=== PATIENT | female | born 1955 | race Caucasian/White ===

== ENCOUNTER 2016-05-16 19:01 | Emergency (ER) | payer BC, OTHER ==
[2016-05-16] MEDS ORDERED: ASPIRIN 81 MG TABLET, CHEWABLE PO ONE (20:33)
--- NOTE | 2016-05-16 20:36 | ER Document Report ---
ED Medical Screen (RME) - General Chief Complaint: Chest Pain > 30 Stated Complaint: CHEST PAIN, BACK PAIN Time seen by provider: 20:34 Notes: 60-year-old female, chief complaint of chest pain, intermittent for days to weeks but seemed worse today while at work, felt pain in her chest and in her upper back, took two 81 mg aspirin prior to arrival, symptoms of pain/pressure started this afternoon. Past history anemia, no cardiac history. Denies any current symptoms. TRAVEL OUTSIDE OF THE [place] IN LAST 30 DAYS: No - Related Data Allergies/Adverse Reactions: No Known Allergies Allergy (Verified 05/16/16 20:31) Home Medications: Current Home Medications No Home Medications 05/16/16 [History] Past Medical History Renal/ Medical History: Denies: Hx Peritoneal Dialysis Physical Exam - Respiratory Respiratory status: No respiratory distress. No: Respiratory distress, Tachypnea Breath sounds: Normal. No: Decreased air movement, Nonproductive cough, Productive cough, Wheezing - Cardiovascular Rhythm: Regular. No: Tachycardia Heart sounds: Normal auscultation, S1 appreciated, S2 appreciated
[2016-05-16 20:52] LABS: ABSOLUTE BASOPHILS # (AUTO) 0.1 10^3/uL (0.0-0.2); ABSOLUTE EOSINOPHILS # (AUTO) 0.4 10^3/uL (0.0-0.6); ABSOLUTE LYMPHOCYTES (AUTO) 2.8 10^3/uL (0.5-4.7); ABSOLUTE MONOCYTES (AUTO) 0.9 10^3/uL (0.1-1.4); ABSOLUTE NEUT (AUTO) 6.4 10^3/uL (1.7-8.2); BASOPHILS % (AUTO) 1.2 % (0-2); EOSINOPHILS % (AUTO) 3.4 % (0-6); HEMATOCRIT 21.5 % (36.0-47.0); HGB HCT DIFFERENCE -2.3; LYMPHOCYTES % (AUTO) 26.8 % (13-45); MEAN CORPUSCULAR HEMOGLOBIN 16.5 pg (27.0-33.4); MEAN CORPUSCULAR HGB CONC 29.7 g/dL (32.0-36.0); MONOCYTES % (AUTO) 8.3 % (3-13); RED BLOOD COUNT 3.87 10^6/uL (3.72-5.28); RED CELL DISTRIBUTION WIDTH 19.4 % (11.5-14.0); SEGMENTED NEUTROPHILS % (AUTO) 60.3 % (42-78); WHITE BLOOD COUNT 10.6 10^3/uL (4.0-10.5)
[2016-05-16 21:02] LABS: ALANINE AMINOTRANSFERASE 23 U/L (9-52); ALKALINE PHOSPHATASE 86 U/L (38-126); ANION GAP 13 (5-19); ASPARTATE AMINO TRANSFERASE 19 U/L (14-36); BILIRUBIN,TOTAL 0.4 mg/dL (0.2-1.3); BLOOD UREA NITROGEN 22 mg/dL (7-20); CALCIUM 9.2 mg/dL (8.4-10.2); CARBON DIOXIDE 24 mmol/L (22-30); CHLORIDE 107 mmol/L (98-107); CREATINE KINASE 111 U/L (30-135); CREATININE RESULT 0.78 mg/dL (0.52-1.25); GLUCOSE 100 mg/dL (75-110); POTASSIUM 4.1 mmol/L (3.6-5.0); SODIUM 143.6 mmol/L (137-145); TOTAL PROTEIN 6.9 g/dL (6.3-8.2)
[2016-05-16 21:14] LABS: CREATINE KINASE MB 2.51 ng/mL (<4.55)
[2016-05-16 21:30] LABS: HEMOGLOBIN 6.4 g/dL (12.0-15.5)
[2016-05-16 21:37] LABS: ANISOCYTOSIS 2+; HYPOCHROMASIA 2+; MICROCYTOSIS 4+; POIKILOCYTOSIS 1+; POLYCHROMASIA 1+; TOXIC GRANULATION 2+
[2016-05-16 21:38] LABS: OVALOCYTES 1+; TARGET CELLS SLIGHT; TEAR DROP CELLS 1+
[2016-05-16 21:39] LABS: MEAN CORPUSCULAR VOLUME 56 fl (80-97); TROPONIN I < 0.012 ng/mL
[2016-05-17] MEDS ORDERED: NORMAL SALINE 250 ML IV PRN ×2 (01:48)
--- NOTE | 2016-05-17 02:00 | ER Document Report ---
Addendum entered and electronically signed by JERRY GIRALDO NP 05/17/16 11:36 : Course - Re-evaluation Re-evalutation: 05/17/16 11:35 Patient reports she's feeling a lot better. She was instructed on her follow- up visit with Dr. Tejada at 1330 today. She verbalized understanding. H&H increased - Vital Signs Vital signs: Temp Pulse Resp BP Pulse Ox 97.4 F 77 16 148/80 H 99 05/17/16 09:14 05/17/16 09:14 05/17/16 07:14 05/17/16 09:14 05/17/16 09:14 - Laboratory Result Diagrams: 05/17/16 09:50 05/16/16 20:40 Laboratory results interpreted by me: 05/16/16 05/16/16 05/17/16 20:40 20:40 02:00 WBC 10.6 H Hgb 6.4 L Hct 21.5 L MCV 56 L MCH 16.5 L MCHC 29.7 L RDW 19.4 H BUN 22 H Crossmatch See Detail 05/17/16 09:50 WBC Hgb 8.1 L Hct 26.9 L MCV 61 L D MCH 18.4 L MCHC 29.9 L RDW 27.0 H BUN Crossmatch Addendum entered and electronically signed by JERRY GIRALDO NP 05/17/16 08:34 : Course - Re-evaluation Re-evalutation: 05/17/16 08:34 Report received from Primitivo Redman. Dr. Tejada consult did. He agrees patient follow-up in the office today or tomorrow. Office contacted appointment arranged for 1330 today. Patient updated - Vital Signs Vital signs: Temp Pulse Resp BP Pulse Ox 97.8 F 73 16 131/77 H 97 05/17/16 07:14 05/17/16 07:14 05/17/16 07:14 05/17/16 07:14 05/17/16 07:14 - Laboratory Result Diagrams: 05/16/16 20:40 05/16/16 20:40 Laboratory results interpreted by me: 05/16/16 05/16/16 05/17/16 20:40 20:40 02:00 WBC 10.6 H Hgb 6.4 L Hct 21.5 L MCV 56 L MCH 16.5 L MCHC 29.7 L RDW 19.4 H BUN 22 H Crossmatch See Detail Original Note: ED Cardiac - General Chief Complaint: Chest Pain > 30 Stated Complaint: CHEST PAIN, BACK PAIN Time seen by provider: 01:55 Notes: 60-year-old female, chief complaint of chest pain, intermittent for days to weeks but seemed worse today while at work, felt vague pain in her chest and in her upper back, took two 81 mg aspirin prior to arrival, symptoms of pain/ pressure started this afternoon. Past history anemia, no cardiac history. Denies any current symptoms. Patient has had a cholecystectomy. TRAVEL OUTSIDE OF THE [place] IN LAST 30 DAYS: No - Related Data Allergies/Adverse Reactions: No Known Allergies Allergy (Verified 05/16/16 20:31) Home Medications: Current Home Medications No Home Medications 05/16/16 [History] Past Medical History - General Information source: Patient - Social History Smoking Status: Never Smoker Frequency of alcohol use: None Drug Abuse: None Lives with: Alone Family History: Reviewed & Not Pertinent Patient has suicidal ideation: No Patient has homicidal ideation: No Renal/ Medical History: Denies: Hx Peritoneal Dialysis Past Surgical History: Reports: Hx Cholecystectomy Review of Systems - Review of Systems Constitutional: See HPI EENT: No symptoms reported Cardiovascular: See HPI Respiratory: See HPI Gastrointestinal: No symptoms reported Genitourinary: No symptoms reported Female Genitourinary: No symptoms reported Musculoskeletal: No symptoms reported Skin: No symptoms reported Hematologic/Lymphatic: No symptoms reported Neurological/Psychological: No symptoms reported Physical Exam - Vital signs Vitals: Temp Pulse Resp BP Pulse Ox 98.2 F 79 18 139/63 H 97 05/16/16 20:15 05/16/16 20:15 05/16/16 20:15 05/16/16 20:15 05/16/16 20:15 Interpretation: Normal - General General appearance: Appears well, Alert In distress: None - HEENT Head: Normocephalic, Atraumatic Eyes: Normal Conjunctiva: Normal Extraocular movements intact: Yes Eyelashes: Normal Pupils: PERRL Sinus: Normal Nasal: Normal Mouth/Lips: Normal Mucous membranes: Normal Pharynx: Normal Neck: Normal - Respiratory Respiratory status: No respiratory distress Chest status: Nontender Breath sounds: Normal. No: Decreased air movement, Nonproductive cough Chest palpation: Normal - Cardiovascular Rhythm: Regular. No: Tachycardia Heart sounds: Normal auscultation, S1 appreciated, S2 appreciated Murmur: No - Abdominal Inspection: Normal Distension: No distension Bowel sounds: Normal Tenderness: Nontender. No: Tender, Guarding Organomegaly: No organomegaly - Back Back: Normal, Nontender - Extremities General upper extremity: Normal inspection, Nontender, Normal color, Normal ROM , Normal temperature General lower extremity: Normal inspection, Nontender, Normal color, Normal ROM , Normal temperature, Normal weight bearing. No: April's sign - Neurological Neuro grossly intact: Yes Cognition: Normal Orientation: AAOx4 Burgess Coma Scale Eye Opening: Spontaneous Burgess Coma Scale Verbal: Oriented Burgess Coma Scale Motor: Obeys Commands Burgess Coma Scale Total: 15 Speech: Normal Motor strength normal: LUE, RUE, LLE, RLE Sensory: Normal - Psychological Associated symptoms: Normal affect, Normal mood - Skin Skin Temperature: Warm Skin Moisture: Dry Skin Color: Normal Course - Re-evaluation Re-evalutation: When questioned further patient admits that she has vaginal bleeding daily for the past 3 years, has had difficulty with vaginal bleeding much longer than that , she has been transfused once in 2006, she states she has been worked up for anemia before with no findings, she has not had any medical workup any time recently. Hemoglobin is very low at 6.4, patient getting 2 units packed red blood cells transfused, patient remained asymptomatic during her stay except for mild itching which patient states she has had for over a week. Discussed with Dr. Patel per [facility] guidelines. Discussed with patient that there is concern that she has a cancer source that is causing her bleeding, patient states that she has insurance and she does want somebody to see to get this taken care of. Patient will be referred for very close follow up with [facility], patient's states satisfaction and agreement. 05/17/16 07:20 Patient introduced at bedside to Violet DORSEY. - Vital Signs Vital signs: Temp Pulse Resp BP Pulse Ox 97.8 F 73 16 131/77 H 97 05/17/16 07:14 05/17/16 07:14 05/17/16 07:14 05/17/16 07:14 05/17/16 07:14 - Laboratory Result Diagrams: 05/16/16 20:40 05/16/16 20:40 Laboratory results interpreted by me: 05/16/16 05/16/16 05/17/16 20:40 20:40 02:00 WBC 10.6 H Hgb 6.4 L Hct 21.5 L MCV 56 L MCH 16.5 L MCHC 29.7 L RDW 19.4 H BUN 22 H Crossmatch See Detail Discharge - Discharge Clinical Impression: Symptomatic anemia, Anemia requiring transfusions Condition: Stable Disposition: HOME, SELF-CARE Additional Instructions: You have been given blood transfusions to normalize your hemoglobin levels, however please follow-up as soon as possible with the [facility] referral for management of vaginal bleeding. Please do not delay, delayed could mean complication such as cancer development, worsening anemia, or other concerning problems. Return to emergency department for any return or new concerning symptoms. Forms: Return to Work Referrals: [facility] [Provider Group] - Follow up in 1 week
[2016-05-17] MEDS ORDERED: DIPHENHYDRAMINE HCL 50 MG/ML VIAL IV ONE (06:02)
[2016-05-17 10:30] LABS: HEMATOCRIT 26.9 % (36.0-47.0); HEMOGLOBIN 8.1 g/dL (12.0-15.5); HGB HCT DIFFERENCE -2.6; MEAN CORPUSCULAR HEMOGLOBIN 18.4 pg (27.0-33.4); MEAN CORPUSCULAR HGB CONC 29.9 g/dL (32.0-36.0); RED BLOOD COUNT 4.39 10^6/uL (3.72-5.28); WHITE BLOOD COUNT 9.1 10^3/uL (4.0-10.5)
[2016-05-17 10:46] LABS: MEAN CORPUSCULAR VOLUME 61 fl (80-97)
--- NOTE | 2016-05-17 11:19 | EKG REPORT ---
SEVERITY:- ABNORMAL ECG - SINUS RHYTHM LEFT VENTRICULAR HYPERTROPHY : Confirmed by: Darlin Rodríguez 17-May-2016 11:18:50
[2016-05-17 11:49] VITALS: BP 140/75
== END 2016-05-17 11:49 | disposition home or self-care (01) ==
LOC: ER 19:01
DX: D64.9 Anemia, unspecified (principal); R07.9 Chest pain, unspecified; M54.6 Pain in thoracic spine
CPT/HCPCS: 93005; 99285; 96374; 86900; 86901; 36415; 82553; 36430; 86850; 82550; 85025; 85027; 80053; 84484; 86920; 71010; 93010; P9016; J1200

== ENCOUNTER 2016-09-24 19:05 | Emergency (ER) | payer BC ==
[2016-09-24] MEDS ORDERED: NORMAL SALINE 1000 ML 1,000 ML IV PRN (19:34)
--- NOTE | 2016-09-24 19:36 | ER Document Report ---
ED Medical Screen (RME) - General Chief Complaint: General Weakness Stated Complaint: WEAKNESS,VAGINAL BLEEDING Time Seen by Provider: 09/24/16 19:24 Mode of Arrival: Ambulatory Information source: Patient TRAVEL OUTSIDE OF THE [place] IN LAST 30 DAYS: No - HPI Patient complains to provider of: Generalized weakness, dyspnea on exertion, heavy vaginal bleeding Onset/Duration: Persistent Quality of pain: Achy Severity: Mild Pain Level: 1 Associated Symptoms: Dizzy/lightheaded, Other - Rib Pain Similar symptoms previously: Yes Notes: 09/24/16 19:35 Patient is a 60-year-old female with a history of anemia from heavy vaginal bleeding, states she has had vaginal bleeding every day for the past 4-5 years, received a transfusion in 2006 as well as May 2016, she did follow-up with [facility] and her hysterectomy was recommended the patient states she is unable to afford such a procedure, she does report dyspnea on exertion, generalized weakness and malaise - Related Data Allergies/Adverse Reactions: No Known Allergies Allergy (Verified 05/16/16 20:31) Past Medical History Renal/ Medical History: Denies: Hx Peritoneal Dialysis Past Surgical History: Reports: Hx Cholecystectomy Physical Exam - Vital signs Vitals: Temp Pulse Resp BP Pulse Ox 98.5 F 80 20 135/63 H 95 09/24/16 19:20 09/24/16 19:20 09/24/16 19:20 09/24/16 19:20 09/24/16 19:20 Course - Vital Signs Vital signs: Temp Pulse Resp BP Pulse Ox 98.5 F 80 20 135/63 H 95 09/24/16 19:20 09/24/16 19:20 09/24/16 19:20 09/24/16 19:20 09/24/16 19:20
[2016-09-24 20:12] LABS: ABSOLUTE BASOPHILS # (AUTO) 0.1 10^3/uL (0.0-0.2); ABSOLUTE EOSINOPHILS # (AUTO) 0.3 10^3/uL (0.0-0.6); ABSOLUTE LYMPHOCYTES (AUTO) 2.8 10^3/uL (0.5-4.7); ABSOLUTE MONOCYTES (AUTO) 0.8 10^3/uL (0.1-1.4); ABSOLUTE NEUT (AUTO) 4.5 10^3/uL (1.7-8.2); BASOPHILS % (AUTO) 0.8 % (0-2); EOSINOPHILS % (AUTO) 3.2 % (0-6); HEMATOCRIT 18.4 % (36.0-47.0); HGB HCT DIFFERENCE -2.8; LYMPHOCYTES % (AUTO) 33.1 % (13-45); MEAN CORPUSCULAR HEMOGLOBIN 16.3 pg (27.0-33.4); MEAN CORPUSCULAR HGB CONC 28.3 g/dL (32.0-36.0); MONOCYTES % (AUTO) 9.2 % (3-13); RED BLOOD COUNT 3.19 10^6/uL (3.72-5.28); RED CELL DISTRIBUTION WIDTH 18.3 % (11.5-14.0); SEGMENTED NEUTROPHILS % (AUTO) 53.7 % (42-78); WHITE BLOOD COUNT 8.4 10^3/uL (4.0-10.5)
[2016-09-24 20:26] LABS: ANISOCYTOSIS 1+; HYPOCHROMASIA 3+; MICROCYTOSIS 3+; OVALOCYTES SLIGHT; POIKILOCYTOSIS 1+; POLYCHROMASIA SLIGHT; TEAR DROP CELLS SLIGHT
[2016-09-24 20:28] LABS: HEMOGLOBIN 5.2 g/dL (12.0-15.5)
[2016-09-24 20:30] LABS: MEAN CORPUSCULAR VOLUME 58 fl (80-97)
[2016-09-24 20:35] LABS: ALANINE AMINOTRANSFERASE 32 U/L (9-52); ALBUMIN 3.6 g/dL (3.5-5.0); ALKALINE PHOSPHATASE 86 U/L (38-126); ANION GAP 12 (5-19); ASPARTATE AMINO TRANSFERASE 22 U/L (14-36); BILIRUBIN,DIRECT 0.2 mg/dL (0.0-0.4); BILIRUBIN,TOTAL 0.4 mg/dL (0.2-1.3); BLOOD UREA NITROGEN 29 mg/dL (7-20); CARBON DIOXIDE 23 mmol/L (22-30); CHLORIDE 107 mmol/L (98-107); CREATININE RESULT 1.11 mg/dL (0.52-1.25); GLUCOSE 97 mg/dL (75-110); SODIUM 142.3 mmol/L (137-145); TOTAL PROTEIN 6.6 g/dL (6.3-8.2)
[2016-09-24] MEDS ORDERED: NORMAL SALINE 250 ML IV PRN ×2 (20:41)
--- NOTE | 2016-09-24 20:51 | ER Document Report ---
ED General - General Mode of Arrival: Ambulatory Information source: Patient TRAVEL OUTSIDE OF THE [place] IN LAST 30 DAYS: No - HPI Patient complains to provider of: vaginal bleeding Onset: Other - 4-5 years ago Associated symptoms: Other - see notes above <ELIAZAR ANDREWS - Last Filed: 09/25/16 03:17> <YUNNELIA - Last Filed: 09/25/16 03:52> - General Chief Complaint: General Weakness Stated Complaint: WEAKNESS,VAGINAL BLEEDING Time Seen by Provider: 09/24/16 20:40 Notes: 60-year-old female with history of vaginal bleeding for the past 4-5 years presents to the ED complaining of feeling dizzy and lightheaded past few weeks. Patient is also complaining of chest pain and rib pain. Historically, the patient has received a blood transfusion in 2006 and in May 2016. Patient denies taking any iron supplements stating that increases her bleeding. Patient reports that she has been having vaginal bleeding for the past 4-5 years. Patient's mother reports that the patient looks pale compared to normal. Patient states that she has to get $1100 for the hysterectomy and is having trouble finding the money. She has tried contacting financial people here in the hospital states that they could not help because they have covered her past expenses. Patient's project financial analyst is Dr. Helio dove saw her in May 2016 who recommended that the patient receive a hysterectomy. PCP: None (ELIAZAR ANDREWS) - Related Data Allergies/Adverse Reactions: No Known Allergies Allergy (Verified 05/16/16 20:31) Past Medical History - General Information source: Patient - Social History Smoking Status: Never Smoker Chew tobacco use (# tins/day): No Frequency of alcohol use: None Drug Abuse: None Family History: Reviewed & Not Pertinent - Past Medical History Cardiac Medical History: Reports: Other - anemia and blood transfusion (2006 and May 2016) Renal/ Medical History: Reports: Other - vaginal bleeding. Denies: Hx Peritoneal Dialysis Past Surgical History: Reports: Hx Cholecystectomy - Immunizations Hx Diphtheria, Pertussis, Tetanus Vaccination: No <ELIAZAR ANDREWS - Last Filed: 09/25/16 03:17> Review of Systems - Review of Systems Constitutional: No symptoms reported EENT: No symptoms reported Cardiovascular: See HPI, Chest pain, Dizziness, Lightheaded Respiratory: No symptoms reported Gastrointestinal: No symptoms reported Genitourinary: No symptoms reported Female Genitourinary: See HPI, Vaginal bleeding Musculoskeletal: See HPI, Other - rib pain Skin: No symptoms reported Hematologic/Lymphatic: No symptoms reported Neurological/Psychological: No symptoms reported. denies: Lost consciousness -: Yes All other systems reviewed and negative <ELIAZAR ANDREWS - Last Filed: 09/25/16 03:17> Physical Exam - General General appearance: Alert In distress: None - HEENT Head: Normocephalic, Atraumatic Eyes: Pale conjunctiva Extraocular movements intact: Yes Pupils: PERRL - Respiratory Respiratory status: No respiratory distress Breath sounds: Normal - Cardiovascular Rhythm: Regular Heart sounds: Normal auscultation - Abdominal Inspection: Normal Distension: No distension Tenderness: Nontender - Genitourinary External exam: Normal Speculum exam: Normal. No: Vaginal discharge Vaginal bleeding: None - Back Back: Normal - Extremities General upper extremity: Normal inspection, Normal color General lower extremity: Normal inspection, Normal color - Neurological Neuro grossly intact: Yes Cognition: Normal Orientation: AAOx4 Jazzy Coma Scale Eye Opening: Spontaneous Jazzy Coma Scale Verbal: Oriented [place] Coma Scale Motor: Obeys Commands [place] Coma Scale Total: 15 Speech: Normal - Psychological Associated symptoms: Normal affect, Normal mood - Skin Skin Temperature: Warm Skin Moisture: Dry Skin Color: Pale <ELIAZAR ANDREWS - Last Filed: 09/25/16 03:17> Course - Laboratory Result Diagrams: 09/24/16 19:53 09/24/16 19:53 - Consults Dr. Torres Time consulted: 23:21 <ELIAZAR ANDREWS - Last Filed: 09/25/16 03:17> - Laboratory Result Diagrams: 09/24/16 19:53 09/24/16 19:53 <NELIA MACLOLM - Last Filed: 09/25/16 03:52> - Re-evaluation Re-evalutation: 09/25/16 03:06 Patient presents to the emergency department with chief complaint of vaginal bleeding lightheaded and dizziness. She says for the past 3-4 years she has bled pretty much on a daily basis. She states that she did require transfusion one time over a year and a half ago. Last time she was seen by an [employer] physician was May and that was Dr. Hurst. At that time Dr. Hurst wanted to do a hysterectomy but the patient was unable to come up with the money to do the procedure despite the fact that she works and has [employer]. She wanted to start on control pills but the patient declined. She said she pretty much bleeds on a regular basis increased over the last week or so with lightheadedness and dizziness. Mom noticed today that she was pale and because she was lightheaded and dizzy she said she better come be evaluated in emergency department. She denies any abdominal pain flank pain urinary symptoms fevers chills chest pain syncope or near syncope. On examination she is not tachycardic or hypotensive. Abdomen soft no acute guarding rebound or rigidity on my pelvic examination there is no active vaginal bleeding. Hemoglobin came back low went ahead and transfuse her 2 units of blood. At that time I contacted Dr. Torres production supervisor trainee for [employer] who recommended to give her a dose Provera here which I did. She stated after she was transfused 2 units of blood if she felt better she was going to give her information to Dr. Hurst this morning to follow-up in the office in 1-2 days and potentially do ablation in the office. She also asked me to write Provera which I did in prescription form. Long discussion with the patient and family member at the bedside she is comfortable going home she is comfortable with this plan is going to contact Dr. Hurst's office in the morning and told her to return immediately for she is soaking more than 1 pad an hour or any other concerns. (NELIA MALCOLM) - Vital Signs Vital signs: Temp Pulse Resp BP Pulse Ox 98.3 F 70 16 141/71 H 100 09/25/16 01:55 09/25/16 01:55 09/25/16 01:55 09/25/16 03:01 09/25/16 03:01 - Laboratory Laboratory results interpreted by me: 09/24/16 09/24/16 09/24/16 19:53 19:53 19:53 RBC 3.19 L Hgb 5.2 L Hct 18.4 L MCV 58 L MCH 16.3 L MCHC 28.3 L RDW 18.3 H BUN 29 H Est GFR (Non-Af Amer) 50 L Crossmatch See Detail - Consults Dr. Torres Reason for consultation: 09/25/16 23:21 Patient was discussed with Dr. Torres. See re-evaluation note above for details. (ELIAZAR ANDREWS) Critical Care Note - Critical Care Note Total time excluding time spent on procedures (mins): 45 <YUNNELIA - Last Filed: 09/25/16 03:52> Discharge <ELIAZAR ANDREWS - Last Filed: 09/25/16 03:17> <LUZ MALCOLMMY - Last Filed: 09/25/16 03:52> - Discharge Clinical Impression: Dysfunctional uterine bleeding, Blood loss anemia Condition: Stable Disposition: HOME, SELF-CARE Additional Instructions: Dysfunctional Uterine Bleeding You're having an abnormal pattern of bleeding from the uterus. We call this dysfunctional uterine bleeding. It is most often caused by a hormone imbalance. Most often this is temporary and no cause is found. There's no evidence of , tumors, or infection as a cause. Dysfunctional uterine bleeding is especially common at times when the normal menstrual cycle is disturbed -- whether by recent , use of control pills or hormones, or impending menopause. Some medical problems lead to dysfunctional bleeding, such as obesity or being very underweight, stress, or thyroid problems. In many cases, the menstrual cycle will return to normal without any treatment. Where the bleeding is significant, high-dose estrogen will usually stop the bleeding within a day of two. A cycle or two of hormones ( control pills) can help restore the uterus to normal. In some patients where bleeding is severe or resistant to treatment, a D&C is required. A endometrial biopsy (a sample of the inside of the uterus) may be recommended for some older women. This would be done by a gynecology specialist. Treatment for anemia may be required if bleeding is severe. You should rest and avoid intercourse until the bleeding is controlled. Call the doctor or return for re-examination if you feel faint, have increasing pain, or have a major increase in the amount of bleeding. Anemia You have been found to have a significant anemia (a lower than normal amount of red blood cells). Anemia can be due to iron deficiency, vitamin deficiency, abnormal bleeding, or internal diseases. Usually, further tests are necessary to find the exact cause of the anemia. The most common cause of anemia is iron deficiency, often brought on by blood loss. This can be treated with iron supplements. If this appears to be the most likely cause, iron tablets may be prescribed even before all tests are complete. Contact the doctor at once if you note black or tarry-looking stools, bloody vomiting, shortness of breath, chest pain, or faintness. Referrals: YAZMIN HURST MD [ACTIVE STAFF] - (Call the office in the a.m. to be seen in follow-up in 1-2 days return immediately to the emergency department if you are soaking greater than 1 pad an hour or there is any additional concerns) Scribe Attestation: 09/25/16 03:03 I personally performed the services described in the documentation reviewed the documentation recorded by my scribe in my presence and it accurately and completely records my words and actions (NELIA MALCOLM) Scribe Documentation - Scribe Written by Kevan:: Kevan Cam, 09/24/2016 [id number] acting as scribe for :: Yun <ELIAZAR ANDREWS - Last Filed: 09/25/16 03:17>
[2016-09-24] MEDS ORDERED: MEDROXYPROGESTERONE ACET 10 MG TABLET PO ONE (23:26)
[2016-09-25 03:23] VITALS: BP 141/71
[2016-09-25 12:12] LABS: PATH REVIEW PATHOLOGIST REVIEWED
== END 2016-09-25 03:30 | disposition home or self-care (01) ==
LOC: ER 19:05
DX: N93.8 Other specified abnormal uterine and vaginal bleeding (principal); D50.0 Iron deficiency anemia secondary to blood loss (chronic); R07.81 Pleurodynia; R42 Dizziness and giddiness; Z59.9 Problem related to housing and economic circumstances, unspecified
CPT/HCPCS: 99285; 96360; 86900; 86901; 36415; 36430; 86850; 85025; 80053; 86920; P9016; J3490; J7030

== ENCOUNTER 2016-10-19 15:44 | Emergency (ER) | payer BC, OTHER ==
--- NOTE | 2016-10-19 16:39 | ER Document Report ---
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 Patient is scheduled for hysterectomy (Dr. Cadet) on November 15. She presents to the emergency room with concerns for worsening anemia in the setting of increased vaginal bleeding. The only medicine the patient is on is medroxyprogesterone ( 20 mg 3 times a day). She was placed on this medicine by Dr. Cadet for dysfunctional uterine bleeding. TRAVEL OUTSIDE OF THE [place] IN LAST 30 DAYS: No - Related Data Allergies/Adverse Reactions: No Known Allergies Allergy (Verified 10/19/16 15:50) Past Medical History Renal/ Medical History: Denies: Hx Peritoneal Dialysis Past Surgical History: Reports: Hx Cholecystectomy - Immunizations Hx Diphtheria, Pertussis, Tetanus Vaccination: No Physical Exam - Vital signs Vitals: Temp Pulse Resp BP Pulse Ox 98.7 F 102 H 20 133/53 H 97 10/19/16 15:49 10/19/16 15:49 10/19/16 15:49 10/19/16 15:49 10/19/16 15:49 Course - Vital Signs Vital signs: Temp Pulse Resp BP Pulse Ox 98.7 F 102 H 20 133/53 H 97 10/19/16 15:49 10/19/16 15:49 10/19/16 15:49 10/19/16 15:49 10/19/16 15:49
[2016-10-19 17:27] LABS: ABSOLUTE BASOPHILS # (AUTO) 0.1 10^3/uL (0.0-0.2); ABSOLUTE EOSINOPHILS # (AUTO) 0.2 10^3/uL (0.0-0.6); ABSOLUTE LYMPHOCYTES (AUTO) 2.4 10^3/uL (0.5-4.7); ABSOLUTE MONOCYTES (AUTO) 0.9 10^3/uL (0.1-1.4); ABSOLUTE NEUT (AUTO) 9.4 10^3/uL (1.7-8.2); EOSINOPHILS % (AUTO) 1.8 % (0-6); HEMATOCRIT 20.7 % (36.0-47.0); HGB HCT DIFFERENCE -2.4; LYMPHOCYTES % (AUTO) 18.2 % (13-45); MEAN CORPUSCULAR HEMOGLOBIN 18.5 pg (27.0-33.4); MEAN CORPUSCULAR HGB CONC 29.7 g/dL (32.0-36.0); MONOCYTES % (AUTO) 7.1 % (3-13); RED BLOOD COUNT 3.31 10^6/uL (3.72-5.28); RED CELL DISTRIBUTION WIDTH 26.5 % (11.5-14.0); SEGMENTED NEUTROPHILS % (AUTO) 71.9 % (42-78); WHITE BLOOD COUNT 13.1 10^3/uL (4.0-10.5)
[2016-10-19 17:48] LABS: MEAN CORPUSCULAR VOLUME 62 fl (80-97)
[2016-10-19 17:49] LABS: ALANINE AMINOTRANSFERASE 31 U/L (9-52); ALBUMIN 3.8 g/dL (3.5-5.0); ALKALINE PHOSPHATASE 74 U/L (38-126); ANION GAP 11 (5-19); ASPARTATE AMINO TRANSFERASE 17 U/L (14-36); BILIRUBIN,DIRECT 0.3 mg/dL (0.0-0.4); BILIRUBIN,TOTAL 0.5 mg/dL (0.2-1.3); BLOOD UREA NITROGEN 23 mg/dL (7-20); CALCIUM 9.2 mg/dL (8.4-10.2); CARBON DIOXIDE 23 mmol/L (22-30); CHLORIDE 107 mmol/L (98-107); GLUCOSE 102 mg/dL (75-110); POTASSIUM 5.2 mmol/L (3.6-5.0); SODIUM 140.8 mmol/L (137-145); TOTAL PROTEIN 6.9 g/dL (6.3-8.2)
[2016-10-19 17:54] LABS: ANISOCYTOSIS 3+; HYPOCHROMASIA 2+; MICROCYTOSIS 3+; POIKILOCYTOSIS 1+; POLYCHROMASIA SLIGHT
[2016-10-19 17:55] LABS: OVALOCYTES 1+; SCHISTOCYTES SLIGHT; TEAR DROP CELLS SLIGHT
[2016-10-19 17:57] LABS: HEMOGLOBIN 6.1 g/dL (12.0-15.5)
[2016-10-19] MEDS ORDERED: NORMAL SALINE 250 ML IV PRN ×2 (18:04)
--- NOTE | 2016-10-19 18:35 | ER Document Report ---
ED General - General Mode of Arrival: Ambulatory Information source: Patient TRAVEL OUTSIDE OF THE [place] IN LAST 30 DAYS: No - HPI Onset: Other - Refer to HPI notes <NEEL DE LEON - Last Filed: 10/19/16 20:33> <JIEISADORA PINON - Last Filed: 10/19/16 22:40> - General Chief Complaint: Vaginal Bleeding Stated Complaint: SHORTNESS OF BREATH Time Seen by Provider: 10/19/16 16:32 Notes: Patient is a 61 year old female presenting to the emergency department for vaginal bleeding. Today the patient's third transfusion since May. Patient is scheduled to have a hysterectomy on November 15, 2016. Patient states that her last pelvic exam was in May with Dr. Hurst at [facility]. Patient states that she has bled through 50 pads in just a few days. Patient was placed on medroxyprogesterone 20 mg 3 times a day by Dr. Hurst for dysfunctional uterine bleeding. Patient has no known drug allergies. (NEEL DE LEON) - Related Data Allergies/Adverse Reactions: No Known Allergies Allergy (Verified 10/19/16 15:50) Past Medical History - General Information source: Patient - Social History Smoking Status: Never Smoker Cigarette use (# per day): No Chew tobacco use (# tins/day): No Frequency of alcohol use: None Drug Abuse: None Family History: None Patient has suicidal ideation: No Patient has homicidal ideation: No Past Surgical History: Reports: Hx Section - x 1, Hx Cholecystectomy - Immunizations Hx Diphtheria, Pertussis, Tetanus Vaccination: No <NEEL DE LEON - Last Filed: 10/19/16 20:33> Review of Systems - Review of Systems Constitutional: No symptoms reported EENT: No symptoms reported Cardiovascular: No symptoms reported Respiratory: No symptoms reported Gastrointestinal: No symptoms reported Genitourinary: No symptoms reported Female Genitourinary: See HPI, Vaginal bleeding Musculoskeletal: No symptoms reported Skin: No symptoms reported Hematologic/Lymphatic: No symptoms reported Neurological/Psychological: See HPI, Weakness -: Yes All other systems reviewed and negative <NEEL DE LEON - Last Filed: 10/19/16 20:33> Physical Exam - Vital signs Interpretation: Normal <NEEL DE LEON - Last Filed: 10/19/16 20:33> - Genitourinary External exam: Normal Vaginal bleeding: Mild [place]iman[place] exam: Normal <ISADORA CERON - Last Filed: 10/19/16 22:40> - Vital signs Vitals: Temp Pulse Resp BP Pulse Ox 98.7 F 102 H 20 133/53 H 97 10/19/16 15:49 10/19/16 15:49 10/19/16 15:49 10/19/16 15:49 10/19/16 15:49 - Notes Notes: GENERAL: Alert, interacts well. Mild distress. HEAD: Normocephalic, atraumatic. EYES: Appear normal. Pupils equal, round, and reactive to light. ENT: Moist mucus membranes, tongue midline. NECK: Full range of motion. Supple. Trachea midline. LUNGS: Clear to auscultation bilaterally, no wheezes, rales, or rhonchi. No respiratory distress. HEART: Regular rate and rhythm. No murmurs, gallops, or rubs. ABDOMEN: Soft, non-tender. Non-distended. Normal bowel sounds. PELVIC: Blood present. EXTREMITIES: Moves all 4 extremities spontaneously. Normal strength. No edema. NEUROLOGICAL: Alert and oriented x3. Normal speech. No focal neurological deficits. GSC 15. PSYCH: Normal affect, normal mood. SKIN: Pale, warm, dry, normal turgor. (NEEL DE LEON) Course - Laboratory Result Diagrams: 10/19/16 17:00 10/19/16 17:00 - Consults Dr. Hurst Time consulted: 19:00 Consulted provider: follow-up in office <NEEL DE LEON - Last Filed: 10/19/16 20:33> - Laboratory Result Diagrams: 10/19/16 17:00 10/19/16 17:00 <ISADORA CERON - Last Filed: 10/19/16 22:40> - Re-evaluation Re-evalutation: 10/19/16 21:56 Patient is a 61-year-old female who presents with vaginal bleeding. Patient has had multiple episodes of this. Patient is anemic to 6.1. Patient will be transfused. Patient only has mild vaginal bleeding at this time. Helio from [facility]. The patient will be given 2 units of PRBCs here in the emergency department. She is already on Provera 20 mg 3 times a day. She is to call Dr. Hurst on Saturday to get in for an earlier preoperative appointment. Vitals are stable. Patient agrees with this plan. 10/19/16 22:39 Transfusion finished about an hour ago. Patient feels well. Vitals are stable. Minimal vaginal bleeding at this time. Follow up with [facility] Saturday. Understands and agrees with plan. Stable for discharge. (ISADORA CERON ) - Vital Signs Vital signs: Temp Pulse Resp BP Pulse Ox 99.5 F 80 23 H 130/86 H 99 10/19/16 21:53 10/19/16 20:27 10/19/16 21:52 10/19/16 21:53 10/19/16 21:52 - Laboratory Laboratory results interpreted by me: 10/19/16 10/19/16 10/19/16 17:00 17:00 17:00 WBC 13.1 H RBC 3.31 L Hgb 6.1 L Hct 20.7 L MCV 62 L D MCH 18.5 L MCHC 29.7 L RDW 26.5 H Plt Count 508 H Absolute Neutrophils 9.4 H Potassium 5.2 H BUN 23 H Est GFR (Non-Af Amer) 51 L Crossmatch See Detail - Consults Dr. Hurst Reason for consultation: 10/19/16 19:[address] Hurst to discuss patient. she recommends the patient was transfused and sent home on Provera and will follow-up as an outpatient. (NEEL DE LEON) Discharge <NEEL DE LEON - Last Filed: 10/19/16 20:33> <ISADORA CERON - Last Filed: 10/19/16 22:40> - Discharge Clinical Impression: Vaginal bleeding, Symptomatic anemia Condition: Stable Disposition: HOME, SELF-CARE Instructions: Menorrhagia ([facility]), Anemia ([facility]) Referrals: YAZMIN HURST MD [Primary Care Provider] - 10/22/16 Scribe Attestation: 10/19/16 22:40 I personally performed the services described in the documentation, reviewed and edited the documentation which was dictated to the scribe in my presence, and it accurately records my words and actions. (ISADORA CERON) Scribe Documentation - Scribe Written by Scribe:: Kevan Josue, 10/19/2016 2030 acting as scribe for :: Jie <NEEL DE LEON - Last Filed: 10/19/16 20:33>
[2016-10-19 21:55] VITALS: BP 130/86
== END 2016-10-19 23:07 | disposition home or self-care (01) ==
LOC: ER 15:44
DX: D64.9 Anemia, unspecified (principal); N93.8 Other specified abnormal uterine and vaginal bleeding; R53.1 Weakness; Z79.3 Long term (current) use of hormonal contraceptives
CPT/HCPCS: 99284; 86900; 86901; 36415; 36430; 86850; 85025; 80053; 86920; P9016

== ENCOUNTER 2016-11-15 05:22 | Day surgery (SDC) | payer BC, OTHER ==
[2016-11-07 11:52] LABS: HEMATOCRIT 27.8 % (36.0-47.0); HEMOGLOBIN 8.5 g/dL (12.0-15.5); HGB HCT DIFFERENCE -2.3; MEAN CORPUSCULAR HEMOGLOBIN 20.5 pg (27.0-33.4); MEAN CORPUSCULAR HGB CONC 30.6 g/dL (32.0-36.0); RED BLOOD COUNT 4.16 10^6/uL (3.72-5.28); RED CELL DISTRIBUTION WIDTH 28.1 % (11.5-14.0); WHITE BLOOD COUNT 9.3 10^3/uL (4.0-10.5)
[2016-11-07 12:00] LABS: APPEARANCE,URINE SLIGHTLY-CLOUDY; BILIRUBIN,URINE NEGATIVE (NEGATIVE); GLUCOSE, URINE NEGATIVE (NEGATIVE); KETONES,URINE NEGATIVE (NEGATIVE); LEUKOCYTE ESTERASE,URINE LARGE (NEGATIVE); NITRITE,URINE NEGATIVE (NEGATIVE); PROTEIN,URINE NEGATIVE (NEGATIVE); URINE SPECIFIC GRAVITY 1.015; UROBILINOGEN,URINE NEGATIVE mg/dL (<2.0)
[2016-11-07 12:20] LABS: ALANINE AMINOTRANSFERASE 34 U/L (9-52); ALBUMIN 4.1 g/dL (3.5-5.0); ALKALINE PHOSPHATASE 83 U/L (38-126); ANION GAP 11 (5-19); ASPARTATE AMINO TRANSFERASE 20 U/L (14-36); BILIRUBIN,DIRECT 0.3 mg/dL (0.0-0.4); BILIRUBIN,TOTAL 0.5 mg/dL (0.2-1.3); BLOOD UREA NITROGEN 21 mg/dL (7-20); CARBON DIOXIDE 22 mmol/L (22-30); CHLORIDE 108 mmol/L (98-107); CREATININE RESULT 0.78 mg/dL (0.52-1.25); GLUCOSE 88 mg/dL (75-110); POTASSIUM 5.2 mmol/L (3.6-5.0); SODIUM 140.9 mmol/L (137-145); TOTAL PROTEIN 7.2 g/dL (6.3-8.2)
--- NOTE | 2016-11-07 12:40 | RADIOLOGY REPORT (SQ) ---
EXAM DESCRIPTION: CHEST PA/LATERAL COMPLETED DATE/TIME: 11/07/2016 10:52 am REASON FOR STUDY: PRE OP COMPARISON: 05/22/2016 EXAM PARAMETERS: NUMBER OF VIEWS: two views TECHNIQUE: Digital Frontal and Lateral radiographic views of the chest acquired. RADIATION DOSE: NA LIMITATIONS: none FINDINGS: LUNGS AND PLEURA: No opacities, masses or pneumothorax. No pleural effusion. MEDIASTINUM AND HILAR STRUCTURES: No masses or contour abnormalities. HEART AND VASCULAR STRUCTURES: Heart normal size. No evidence for failure. BONES: No acute findings. HARDWARE: None in the chest. OTHER: No other significant finding. IMPRESSION: NO SIGNIFICANT RADIOGRAPHIC FINDING IN THE CHEST. TECHNICAL DOCUMENTATION: JOB ID: [id number] [employer]- All Rights Reserved
[2016-11-07 12:58] LABS: MEAN CORPUSCULAR VOLUME 67 fl (80-97)
--- NOTE | 2016-11-07 16:08 | EKG REPORT ---
SEVERITY:- ABNORMAL ECG - SINUS RHYTHM LEFT VENTRICULAR HYPERTROPHY : Confirmed by: Cora Tobias MD 07-Nov-2016 16:08:12
[~2016-11-15 05:22] MED LIST: CEFAZOLIN 1 GM/D5W RTU 1 GM/50 ML RTUPB IV PRN; LACTATED RINGERS 1000 ML IV PRN
[2016-11-15] MEDS ORDERED: FENTANYL CITRATE INJ/PF 250 MCG/5 ML AMPULE ONE (06:51)
[2016-11-15] MEDS ORDERED: EPHEDRINE SULFATE INJ 50 MG/1 ML AMPULE ONE (06:51)
[2016-11-15] MEDS ORDERED: MIDAZOLAM 2 MG/2 ML INJ ONE (06:51)
[2016-11-15] MEDS ORDERED: PROPOFOL INJ 200 MG/20 ML VIAL IV ONE (06:52)
[2016-11-15] MEDS ORDERED: ACETAMINOPHEN 100 ML IV ONE ×2 (06:52→17:30)
[2016-11-15] MEDS ORDERED: MORPHINE SULFATE 10 MG/ML INJ ONE (06:52)
[2016-11-15] MEDS ORDERED: BUPIVACAINE HCL 0.25 % INJ/PF (2.5 MG/1 ML) 30 ML VIAL ONE (07:26)
[2016-11-15] MEDS ORDERED: ROCURONIUM BROMIDE INJ 50 MG/5 ML VIAL IV ONE (07:45)
[2016-11-15] MEDS ORDERED: LIDOCAINE 2% INJ-PF (20 MG/ML) 10 ML AMPUL ONE (07:45)
[2016-11-15] MEDS ORDERED: DEXAMETHASONE SOD PHOSPHATE INJ 4 MG/1 ML VIAL ONE (07:45)
[2016-11-15] MEDS ORDERED: NEOSTIGMINE METHYLSULFATE 10 MG/10 ML VIAL ONE (07:45)
[2016-11-15] MEDS ORDERED: GLYCOPYRROLATE INJ 0.4 MG/2 ML VIAL ONE (07:45)
[2016-11-15] MEDS ORDERED: METOCLOPRAMIDE HCL INJ/PF 10 MG/2 ML SDV ONE (07:45)
[2016-11-15] MEDS ORDERED: SUCCINYLCHOLINE CHLORIDE INJ 200 MG/10 ML VIAL ONE (07:45)
[2016-11-15] MEDS ORDERED: FENTANYL CITRATE INJ/PF 100 MCG/2 ML AMPUL IV PRN ×3 (09:24)
[2016-11-15] MEDS ORDERED: MORPHINE SULFATE 10 MG/ML INJ IV PRN ×2 (09:24→14:58)
[2016-11-15] MEDS ORDERED: DIPHENHYDRAMINE HCL 50 MG/ML VIAL IV PRN (09:24)
[2016-11-15] MEDS ORDERED: PROMETHAZINE HCL INJ 25 MG/1 ML VIAL IV PRN (09:24)
[2016-11-15] MEDS ORDERED: MEPERIDINE HCL/PF INJ 25 MG/1 ML DISP.SYRIN IV PRN (09:24)
--- NOTE | 2016-11-15 14:17 | OPERATIVE REPORT E ---
Operative Report NAME: SANDEEP HURST : 1955 AGE: 61Y DATE OF SURGERY: 11/15/2016 ROOM: PREOPERATIVE DIAGNOSES: 1. Abnormal uterine bleeding. 2. Anemia. 3. Pelvic pain. 4. Symptomatic fibroids. POSTOPERATIVE DIAGNOSES: 1. Abnormal uterine bleeding. 2. Anemia. 3. Pelvic pain. 4. Symptomatic fibroids. SURGEON: YAZMIN HURST M.D. ANESTHESIA: Dr. Maxwell with general. FINDINGS: Multiple fibroid uterus measuring approximately 14-week size. COMPLICATIONS: None. ESTIMATED BLOOD LOSS: 300 mL. SPECIMENS REMOVED: Uterus, fallopian tubes, and bilateral ovaries. PROCEDURE: Robotic-assisted total laparoscopic hysterectomy with bilateral salpingo-oophorectomy. PROCEDURE IN DETAIL: Patient was taken to the operating room and prepared and draped in a normal sterile fashion in the dorsal lithotomy position. Under sterile conditions, a Rivers catheter was placed to gravity. A sterile speculum was then placed into the vagina and the cervix was prepped with Betadine. The cervix was grasped with a single-toothed tenaculum and dilated to accommodate a medium Vcare, which was placed without difficulty. Gloves were changed and attention was then turned to the upper portion of the case where an umbilical skin incision was made with a scalpel and carried through to the underlying layer of fascia with the Deleon's. The fascia was tented with Yvette's and the Deleon's were used to transect the fascia then to what was thought to be the peritoneal cavity, some difficulty with placing. After the extension of the fascial incision to accommodate the Gelpoint, we realized that the Gelpoint was not actually in the peritoneal cavity and the peritoneum had yet to be transected so the Gelpoint was removed and the peritoneum was then grasped with hemostats and entered carefully with Metzenbaum's. The peritoneum was then divided and the Gelpoint was placed without difficulty. The abdomen was then insufflated through the Gelpoint and the trocars were placed under direct visualization. The abdomen was inspected once more and the patient was placed in steep Trendelenburg where the above findings noted. The robot was docked and I sat at the console, where using the vessel sealer and the monopolar scissors, I began on the left adnexa and transected the infundibulopelvic ligament with the Endo sealer. This was carried through to the round ligament again with the vessel sealer following the large uterus down to the internal cervical os. This was repeated on the right in the same fashion. The vessel sealer and monopolar scissors were then used to carefully make the bladder flap and this was dissected down until the Vcare cup could be palpated through the mucosa. Continued with careful dissection and skeletonization of the uterine artery using the vessel sealer. Had some difficulty with the colporrhaphy as this was begun on the anterior side and the specimen did fall off of the Vcare, so there was some difficulty with completing the colporrhaphy on the posterior side of the uterus, but this was done with careful dissection using the monopolar scissors. We then had further difficulty with removal of the specimen as it was rather large and the patient did have some atrophy of the vagina. Therefore, the uterus was then carefully morcellated from below using blunt morselization as well as sharp morselization with a 10-blade. Once this was accomplished, the vaginal cuff was then closed from below using the V-Loc suture rather than with the robot as we had had so much difficulty with removing the uterus through the vagina due to its size. We just completed the case vaginally. I then reintroduced the laparoscope once more and inspected the peritoneal cavity for hemostasis and found it to be so. The trocars were then all removed and the fascia was closed at the umbilicus using 0 Vicryl. The skin incisions were all closed with 4-0 Vicryl. Patient tolerated procedure well. Sponge, lap, and needle counts were correct x2, and the patient was taken to recovery in stable condition. DICTATING PHYSICIAN: YAZMIN HURST M.D. [id number] PHY#: [id number] ID: [id number] JOB#: [id number] ACCT: [id number] cc:YAZMIN HURST M.D. >
[2016-11-15] MEDS ORDERED: OXYCODONE-ACETAMINOPHEN 5-325 MG TABLET PO PRN (15:05)
[2016-11-15] MEDS: RINGERS SOLUTION,LACTATED 1,000 ML IV PRN (15:14)
[2016-11-15] MEDS ORDERED: ENOXAPARIN SODIUM INJ 40 MG/0.4 ML DISP.SYRIN SUBCUT ONE (15:30)
[2016-11-15] MEDS ORDERED: ONDANSETRON HCL INJ/PF 4 MG/2 ML SDV IV PRN (17:15)
[2016-11-15 17:53] LABS: HEMATOCRIT 23.2 % (36.0-47.0); HGB HCT DIFFERENCE -2.5; MEAN CORPUSCULAR HEMOGLOBIN 19.5 pg (27.0-33.4); MEAN CORPUSCULAR HGB CONC 29.8 g/dL (32.0-36.0); MEAN CORPUSCULAR VOLUME 65 fl (80-97); RED BLOOD COUNT 3.56 10^6/uL (3.72-5.28); RED CELL DISTRIBUTION WIDTH 25.8 % (11.5-14.0); WHITE BLOOD COUNT 18.5 10^3/uL (4.0-10.5)
[2016-11-15 17:59] LABS: HEMOGLOBIN 6.9 g/dL (12.0-15.5)
[2016-11-15] MEDS: KETOROLAC TROMETHAMINE INJ/PF 30 MG/1 ML SDV IV SCH (22:59)
[2016-11-16] MEDS: RINGERS SOLUTION,LACTATED 1,000 ML IV PRN (02:36)
[2016-11-16 05:53] LABS: HEMATOCRIT 23.1 % (36.0-47.0); HGB HCT DIFFERENCE -1.5; MEAN CORPUSCULAR HEMOGLOBIN 21.1 pg (27.0-33.4); MEAN CORPUSCULAR HGB CONC 31.2 g/dL (32.0-36.0); MEAN CORPUSCULAR VOLUME 68 fl (80-97); RED BLOOD COUNT 3.41 10^6/uL (3.72-5.28); RED CELL DISTRIBUTION WIDTH 28.1 % (11.5-14.0); WHITE BLOOD COUNT 14.9 10^3/uL (4.0-10.5)
[2016-11-16 06:15] LABS: HEMOGLOBIN 7.2 g/dL (12.0-15.5)
[2016-11-16] MEDS: KETOROLAC TROMETHAMINE INJ/PF 30 MG/1 ML SDV IV SCH (06:56)
[2016-11-16] MEDS ORDERED: ENOXAPARIN SODIUM INJ 40 MG/0.4 ML DISP.SYRIN SUBCUT SCH (10:00)
--- NOTE | 2016-11-16 12:01 | PDOC DISCHARGE SUMMARY ---
General - Admit/Disc Date/PCP Admission Date/Primary Care Provider: YAZMIN HURST MD Discharge Date: 11/16/16 - Discharge Diagnosis (1) Abnormal uterine bleeding Is this a current diagnosis for this admission?: Yes (2) Anemia Is this a current diagnosis for this admission?: Yes (3) Fibroid (bleeding) (uterine) Is this a current diagnosis for this admission?: Yes (4) Pelvic adhesions Is this a current diagnosis for this admission?: Yes - Additional Information Home Medications: No Home Medications 05/16/16 History of Present Illness History of Present Illness: SANDEEP HURST is a 61 year old female Hospital Course Hospital Course: underwent RATLH w/ BSO and TUCKER with additional uterine morcellation vaginally for removal. No complications post op. +flatus, no nausea, no vomiting. tolerating regular diet. minimal need for pain medication Physical Exam - Physical Exam Vital Signs: Temp Pulse Resp BP Pulse Ox 98.5 F 92 20 124/77 98 11/16/16 00:20 11/16/16 00:20 11/16/16 00:20 11/16/16 00:20 11/16/16 00:20 Intake & Output 11/15/16 11/16/16 11/17/16 06:59 06:59 06:59 Intake Total 0 2400 Output Total 1925 Balance 0 475 Weight 108.86 kg General appearance: PRESENT: no acute distress Head exam: PRESENT: atraumatic Eye exam: PRESENT: conjunctiva pale - incisions clean/dry/intact Result Laboratory Results: 11/16/16 05:06 11/15/16 06:15 11/15/16 11/15/16 11/16/16 06:15 17:35 05:06 WBC 18.5 H 14.9 H RBC 3.56 L 3.41 L Hgb 6.9 L 7.2 L Hct 23.2 L 23.1 L MCV 65 L 68 L MCH 19.5 L 21.1 L MCHC 29.8 L 31.2 L RDW 25.8 H 28.1 H Plt Count 456 H 339 Blood Type B POSITIVE Antibody Screen NEGATIVE Impressions: Chest X-Ray 11/07/16 10:38 IMPRESSION: NO SIGNIFICANT RADIOGRAPHIC FINDING IN THE CHEST. Plan Discharge Plan: discharge home. keep post op appt with me next week. Time Spent: Less than 30 Minutes
[2016-11-16 12:32] VITALS: BP 121/52
[2016-11-16] MEDS ORDERED: IBUPROFEN 800 MG TABLET PO PRN (22:00)
== END 2016-11-16 15:31 | disposition home or self-care (01) ==
LOC: OROUT 05:22 → 2N 14:30 → OROUT 11-16 15:31
PROVIDERS: ATTEND Obstetrics & Gynecology
PROC: 0UTC4ZZ Resection of Cervix, Percutaneous Endoscopic Approach (ICD-10-PCS; 2016-11-15)
PROC: 0UT24ZZ Resection of Bilateral Ovaries, Percutaneous Endoscopic Approach (ICD-10-PCS; 2016-11-15)
PROC: 0UT74ZZ Resection of Bilateral Fallopian Tubes, Percutaneous Endoscopic Approach (ICD-10-PCS; 2016-11-15)
PROC: 8E0W4CZ Robotic Assisted Procedure of Trunk Region, Percutaneous Endoscopic Approach (ICD-10-PCS; 2016-11-15)
PROC: 0UT94ZZ Resection of Uterus, Percutaneous Endoscopic Approach (ICD-10-PCS; principal; 2016-11-15 07:30)
DX: C55 Malignant neoplasm of uterus, part unspecified (principal); D25.1 Intramural leiomyoma of uterus; N93.8 Other specified abnormal uterine and vaginal bleeding; N80.0 Endometriosis of uterus; D64.9 Anemia, unspecified; N73.6 Female pelvic peritoneal adhesions (postinfective); R10.2 Pelvic and perineal pain; N83.8 Other noninflammatory disorders of ovary, fallopian tube and broad ligament; N39.0 Urinary tract infection, site not specified
CPT/HCPCS: 58573; S2900; 36415; 36430; 71020; 80053; 81001; 840; 84132; 85027; 86850; 86900; 86901; 86920; 87086; 88307; 93005; 93010; J0131; J0330; J0690; J1100; J1650; J1885; J2250; J2270; J2405; J2704; J2765; J3010; J3490; J7120; P9016

== ENCOUNTER 2016-12-06 09:43 | Day surgery (SDC) | payer BC ==
[2016-12-06] MEDS ORDERED: PROPOFOL INJ 200 MG/20 ML VIAL IV ONE ×2 (12:00→12:56)
[2016-12-06] MEDS ORDERED: MORPHINE SULFATE 10 MG/ML INJ IV PRN (12:44)
[2016-12-06] MEDS ORDERED: PROMETHAZINE HCL INJ 25 MG/1 ML VIAL IV PRN ×2 (12:44)
[2016-12-06] MEDS ORDERED: FENTANYL CITRATE INJ/PF 100 MCG/2 ML AMPUL IV PRN ×3 (12:44)
[2016-12-06] MEDS ORDERED: DIPHENHYDRAMINE HCL 50 MG/ML VIAL IV PRN (12:44)
[2016-12-06] MEDS ORDERED: MEPERIDINE HCL/PF INJ 25 MG/1 ML DISP.SYRIN IV PRN (12:44)
[2016-12-06] MEDS ORDERED: OXYCODONE-ACETAMINOPHEN 5-325 MG TABLET PO PRN ×2 (12:44)
[2016-12-06] MEDS ORDERED: DEXTROSE 5%-1/2 NORMAL SALINE 1,000 ML IV PRN (13:40)
[2016-12-06] MEDS ORDERED: PROMETHAZINE HCL INJ 25 MG/1 ML VIAL INJ PRN (14:00)
[2016-12-06] MEDS ORDERED: SIMETHICONE 80 MG TAB.CHEW PO PRN (14:00)
[2016-12-06] MEDS ORDERED: ACETAMINOPHEN 325 MG TABLET PO PRN (14:00)
--- NOTE | 2016-12-06 14:21 | Operative Report ---
Operative Report DATE OF SURGERY: 12/06/16 Operative Report: The risks, benefits and alternatives of the procedure including risks of bleeding, perforation requiring surgery are explained to the patient detail and informed consent was obtained. Patient was taken back to the operating room and placed in the left, lateral decubital position. Timeout was called. Propofol medications administered. A rectal examination was done which did not reveal any masses, tears or fissures. An Olympus videoscope was inserted into the patient's rectum. The scope was then carefully advanced all the way to the cecum. Patient has a very tortuous sigmoid along with very significant diverticulosis. After having passed through the area the scope was easier to be advanced to the cecum. The cecum was identified by the usual anatomical landmarks including the ileocecal valve as well as the appendiceal office. Photodocumentation is obtained. Prep is good. Scope was then sequentially pulled back via the rest segments of the colon including the ascending colon, hepatic flexure, transverse colon, splenic flexure, descending colon and finding to the rectosigmoid portions of the colon. Retroflexion maneuver is performed. PREOPERATIVE DIAGNOSIS: Colorectal cancer screening POSTOPERATIVE DIAGNOSIS: There is severe sigmoid diverticulosis. Right side inflammation status post biopsy rule out lymphocytic, microscopic, collagenous colitis. OPERATION: Colonoscopy with biopsy SURGEON: MIAH DALE ANESTHESIA: LMAC TISSUE REMOVED OR ALTERED: Mucosal specimen obtained on the right side of the colon. COMPLICATIONS: None. ESTIMATED BLOOD LOSS: None. INTRAOPERATIVE FINDINGS: As described above. PROCEDURE: Patient tolerated procedure well. No immediate postprocedure complications are noted. Patient discharged in good condition. Discharge date 12/06/2016. Discharge diet: Regular. Discharge activity: Regular. 2-3 week follow-up to discuss findings. Patient is instructed to call the office or proceed to the emergency room should there be any further problems or questions. We will wait on pathology. 5-10 year surveillance colonoscopy.
[2016-12-06 14:44] VITALS: BP 140/90
== END 2016-12-06 14:57 | disposition home or self-care (01) ==
LOC: OROUT 09:43
PROVIDERS: ATTEND Internal Medicine Gastroenterology
PROC: 0DBF8ZX Excision of Right Large Intestine, Via Natural or Artificial Opening Endoscopic, Diagnostic (ICD-10-PCS; principal; 2016-12-06 12:30)
DX: Z12.11 Encounter for screening for malignant neoplasm of colon (principal); K52.9 Noninfective gastroenteritis and colitis, unspecified; K57.30 Diverticulosis of large intestine without perforation or abscess without bleeding; D64.9 Anemia, unspecified; Z85.42 Personal history of malignant neoplasm of other parts of uterus
CPT/HCPCS: 45380; 88305 ×2; J2704; 810

== ENCOUNTER 2017-01-14 13:11 | Emergency (ER) | payer BC ==
[2017-01-14] MEDS ORDERED: HYDROCODONE/ACETAMINOPHEN 5-325 MG TABLET PO ONE (14:24)
--- NOTE | 2017-01-14 14:25 | ER Document Report ---
HPI - HPI Patient complains to provider of: Right knee joint pain Onset: Other - 3 months Onset/Duration: Persistent Quality of pain: Achy Pain Level: 3 Context: Patient presents complaining of right knee joint pain for the past 3 months. Patient denies any specific injury. Patient states she was walking and felt a pop to her right knee. Patient complains of increased pain over the past few days. Associated Symptoms: Other - Right knee joint pain. denies: Fever Exacerbated by: Standing, Movement, Walking Relieved by: Denies Similar symptoms previously: No Recently seen / treated by doctor: No - ROS ROS below otherwise negative: Yes Systems Reviewed and Negative: Yes All other systems reviewed and negative - CONSTITUTIONAL Constitutional: DENIES: Fever - MUSCULOSKELETAL Musculoskeletal: REPORTS: Extremity pain. DENIES: Swelling - DERM Skin Color: Normal Skin Problems: None Past Medical History - General Information source: Patient - Social History Smoking Status: Never Smoker Frequency of alcohol use: None Drug Abuse: None Occupation: None Family History: None - Past Medical History Cardiac Medical History: Reports: Other - Anemia Denies: Hx Coronary Artery Disease, Hx Heart Attack, Hx Hypertension Pulmonary Medical History: Denies: Hx Asthma, Hx Bronchitis, Hx COPD, Hx Pneumonia Neurological Medical History: Denies: Hx Cerebrovascular Accident, Hx Seizures Renal/ Medical History: Denies: Hx Peritoneal Dialysis Malignancy Medical History: Reports: Other - Uterine cancer Musculoskeltal Medical History: Denies Hx Arthritis Past Surgical History: Reports: Hx Section - x 1, Hx Cholecystectomy - Immunizations Hx Diphtheria, Pertussis, Tetanus Vaccination: No Vertical Provider Document - CONSTITUTIONAL Agree With Documented VS: Yes Exam Limitations: No Limitations General Appearance: WD/WN, No Apparent Distress - INFECTION CONTROL TRAVEL OUTSIDE OF THE [place] IN LAST 30 DAYS: No - HEENT HEENT: Atraumatic, Normocephalic - NECK Neck: Normal Inspection - RESPIRATORY Respiratory: No Respiratory Distress O2 Sat by Pulse Oximetry: 95 - CARDIOVASCULAR Pulses: Normal: Dorsalis pedis - MUSCULOSKELETAL/EXTREMETIES Musculoskeletal/Extremeties: MAEW, FROM, Tender - Generalized right knee joint tenderness, no effusion, normal skin color and temperature overlying joint, no laxity with varus or valgus maneuvers. - NEURO Level of Consciousness: Awake, Alert, Appropriate Motor/Sensory: No Motor Deficit - DERM Integumentary: Warm, Dry, No Rash Course - Vital Signs Vital signs: Temp Pulse Resp BP Pulse Ox 98.5 F 89 20 150/101 H 95 01/14/17 13:39 01/14/17 13:39 01/14/17 13:39 01/14/17 13:39 01/14/17 13:39 - Diagnostic Test Radiology reviewed: Image reviewed, Reports reviewed Procedures - Immobilization Right Knee Pre-Proc Neuro Vasc Exam: Normal Immobilizer type: Anthony wrap Performed by: PCT Post-Proc Neuro Vasc Exam: Normal Alignment checked and good: Yes Discharge - Discharge Clinical Impression: Elevated blood pressure reading, Pain, joint, knee, right Condition: Stable Disposition: HOME, SELF-CARE Instructions: Suspected Internal Knee Injury ([facility]), Oral Narcotic Medication ( [facility]), Sprained Knee ([facility]) Additional Instructions: Return immediately for any new or worsening symptoms Followup with your primary care provider, call tomorrow to make a followup appointment Follow-up with orthopedic doctor for further evaluation of right knee joint pain Prescriptions: Hydrocodone/Acetaminophen [Peru 5-325 Tablet] 1 each PO Q4 PRN #12 tablet PRN Reason: Naproxen [Naprosyn 250 Nmg Tablet] 1 tab PO BID #14 tablet Forms: Elevated Blood Pressure Referrals: [facility] [Provider Group] - Follow up in 3-5 days
--- NOTE | 2017-01-14 15:46 | RADIOLOGY REPORT (SQ) ---
EXAM DESCRIPTION: KNEE RIGHT 4 VIEWS COMPLETED DATE/TIME: 01/14/2017 3:39 pm REASON FOR STUDY: r knee joint pain COMPARISON: None. NUMBER OF VIEWS: Four views. TECHNIQUE: AP, lateral, and both oblique radiographic images acquired of the right knee. LIMITATIONS: None. FINDINGS: MINERALIZATION: Normal. BONES: No acute fracture or dislocation. No worrisome bone lesions. JOINT: No effusion. SOFT TISSUES: No soft tissue swelling. No radio-opaque foreign body. OTHER: No other significant finding. IMPRESSION: NO RADIOGRAPHIC EVIDENCE OF ACUTE INJURY. TECHNICAL DOCUMENTATION: JOB ID: [id number] [employer]- All Rights Reserved
[2017-01-14 16:15] VITALS: BP 146/89
== END 2017-01-14 16:14 | disposition home or self-care (01) ==
LOC: ER 13:11
DX: R03.0 Elevated blood-pressure reading, without diagnosis of hypertension (principal); M25.561 Pain in right knee; Z90.49 Acquired absence of other specified parts of digestive tract
CPT/HCPCS: 99283

== ENCOUNTER 2017-03-21 05:21 | Day surgery (SDC) | payer BC ==
[2017-03-14 09:40] LABS: ABSOLUTE BASOPHILS # (AUTO) 0.1 10^3/uL (0.0-0.2); ABSOLUTE EOSINOPHILS # (AUTO) 0.3 10^3/uL (0.0-0.6); ABSOLUTE LYMPHOCYTES (AUTO) 1.8 10^3/uL (0.5-4.7); ABSOLUTE MONOCYTES (AUTO) 0.7 10^3/uL (0.1-1.4); ABSOLUTE NEUT (AUTO) 4.4 10^3/uL (1.7-8.2); BASOPHILS % (AUTO) 1.2 % (0-2); EOSINOPHILS % (AUTO) 4.7 % (0-6); HEMATOCRIT 35.3 % (36.0-47.0); HEMOGLOBIN 11.5 g/dL (12.0-15.5); HGB HCT DIFFERENCE -0.8; LYMPHOCYTES % (AUTO) 24.5 % (13-45); MEAN CORPUSCULAR HEMOGLOBIN 25.8 pg (27.0-33.4); MEAN CORPUSCULAR HGB CONC 32.7 g/dL (32.0-36.0); MEAN CORPUSCULAR VOLUME 79 fl (80-97); MONOCYTES % (AUTO) 9.2 % (3-13); RED BLOOD COUNT 4.46 10^6/uL (3.72-5.28); RED CELL DISTRIBUTION WIDTH 15.9 % (11.5-14.0); SEGMENTED NEUTROPHILS % (AUTO) 60.4 % (42-78); WHITE BLOOD COUNT 7.3 10^3/uL (4.0-10.5)
[2017-03-14 09:59] LABS: APPEARANCE,URINE SLIGHTLY-CLOUDY; BILIRUBIN,URINE NEGATIVE (NEGATIVE); GLUCOSE, URINE NEGATIVE (NEGATIVE); KETONES,URINE NEGATIVE (NEGATIVE); LEUKOCYTE ESTERASE,URINE MODERATE (NEGATIVE); NITRITE,URINE NEGATIVE (NEGATIVE); PROTEIN,URINE NEGATIVE (NEGATIVE); URINE SPECIFIC GRAVITY 1.012; UROBILINOGEN,URINE NEGATIVE mg/dL (<2.0)
[2017-03-14 10:07] LABS: ANION GAP 13 (5-19); BLOOD UREA NITROGEN 20 mg/dL (7-20); CALCIUM 9.4 mg/dL (8.4-10.2); CARBON DIOXIDE 27 mmol/L (22-30); CHLORIDE 104 mmol/L (98-107); CREATININE RESULT 0.65 mg/dL (0.52-1.25); GLUCOSE 89 mg/dL (75-110); POTASSIUM 4.9 mmol/L (3.6-5.0); SODIUM 143.8 mmol/L (137-145)
--- NOTE | 2017-03-14 10:41 | RADIOLOGY REPORT (SQ) ---
EXAM DESCRIPTION: CHEST PA/LATERAL COMPLETED DATE/TIME: 03/14/2017 9:15 am REASON FOR STUDY: PRE OP COMPARISON: Two-view chest 11/07/2016, 05/16/2016 EXAM PARAMETERS: NUMBER OF VIEWS: two views TECHNIQUE: Digital Frontal and Lateral radiographic views of the chest acquired. RADIATION DOSE: NA LIMITATIONS: none FINDINGS: LUNGS AND PLEURA: No opacities, masses or pneumothorax. No pleural effusion. MEDIASTINUM AND HILAR STRUCTURES: No masses or contour abnormalities. HEART AND VASCULAR STRUCTURES: Mild cardiomegaly. BONES: No acute findings. HARDWARE: None in the chest. OTHER: No other significant finding. IMPRESSION: Mild cardiomegaly. No acute infiltrates TECHNICAL DOCUMENTATION: JOB ID: [id number] [employer]- All Rights Reserved
--- NOTE | 2017-03-14 13:27 | EKG REPORT ---
SEVERITY:- ABNORMAL ECG - SINUS RHYTHM LEFT VENTRICULAR HYPERTROPHY : Confirmed by: Hermes Witt MD 14-Mar-2017 13:26:49
[~2017-03-21 05:21] MED LIST changes: -CEFAZOLIN 1 GM/D5W RTU 1 GM/50 ML RTUPB IV PRN; +CEFAZOLIN 2 GM/D5W RTU 2 GM/50 ML RTUPB IV PRN; +LIDOCAINE 0.5% INJ-PF (5 MG/ML) 50 ML SDV SUBCUT PRN
[2017-03-21] MEDS ORDERED: BUPIVACAINE HCL 0.5 % INJ/PF 30 ML SDV ONE (06:28)
[2017-03-21] MEDS ORDERED: FENTANYL CITRATE INJ/PF 100 MCG/2 ML AMPUL ONE (07:02)
[2017-03-21] MEDS ORDERED: MIDAZOLAM 2 MG/2 ML INJ ONE (07:02)
[2017-03-21] MEDS ORDERED: PROPOFOL INJ 200 MG/20 ML VIAL IV ONE (07:02)
[2017-03-21] MEDS ORDERED: DEXAMETHASONE SOD PHOSPHATE INJ 4 MG/1 ML VIAL ONE (07:02)
[2017-03-21] MEDS ORDERED: ONDANSETRON HCL INJ/PF 4 MG/2 ML SDV ONE ×2 (07:02→09:58)
[2017-03-21] MEDS ORDERED: MORPHINE SULFATE 10 MG/ML INJ ONE (07:03)
[2017-03-21] MEDS ORDERED: ACETAMINOPHEN 100 ML IV ONE (07:03)
[2017-03-21] MEDS ORDERED: MEPERIDINE HCL/PF INJ 25 MG/1 ML DISP.SYRIN IV PRN (08:56)
[2017-03-21] MEDS ORDERED: PROMETHAZINE HCL INJ 25 MG/1 ML VIAL IV PRN ×2 (08:56)
[2017-03-21] MEDS ORDERED: DIPHENHYDRAMINE HCL 50 MG/ML VIAL IV PRN (08:56)
[2017-03-21] MEDS ORDERED: MORPHINE SULFATE 10 MG/ML INJ IV PRN (08:56)
[2017-03-21] MEDS ORDERED: FENTANYL CITRATE INJ/PF 100 MCG/2 ML AMPUL IV PRN ×3 (08:56)
--- NOTE | 2017-03-21 09:14 | Operative Report ---
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 A thigh tourniquet was applied to the left lower extremity. Timeout was done identifying the left knee was the correct site. 0.5%t plain Marcaine was injected into anticipated portal sites. The extremity was elevated and the tourniquet was inflated at 300 mmHg. 11 blade was used to establish the anterolateral portal. Scope was introduced. At this point I established my anteromedial portal. Diagnostic scope was done showing the patient had grade 3 and 4 changes of the medial femoral condyle and grade 3 and 4 changes of the femoral trochlear groove. Patient also had grade 3 focal chondromalacia of the lateral facet of the patella. There is grade II chondromalacia of the lateral femoral condyle as well. Radial tear of the posterior horn of the medial meniscus was noted. At this point combination of a meniscal biter and a 4.0 mm shaver was used to first to my chondroplasty of the trochlear groove. Then I turned my attention to the diffuse wear of the medial femoral condyle, femoral trochlea, patella, lateral femoral condyle and debrided and did abrasion chondroplasty until stable cartilage was noted. I turned my attention to the medial meniscus where I used the meniscal biter and shaver to resect majority of the medial meniscus. Shaver smooth out the edges of the meniscus which gave a good stable wound construct. I this point redirected my camera to the notch and visualized the anterior cruciate ligament PCL and show to be intact. I then placed the extremity in a [id number] and at this point saw some grade 2 changes of the lateral tibial plateau. The meniscus was intact with no noticeable tears. Popliteal hiatus was intact. At this point the fluid of the knee was removed and I proceeded to close the 2 portal sites with 3-0 nylon. Tourniquet was let down. The portal sites were covered with Xeroform 4 x 4 dressing and AVD pad followed by a soft roll. I overwrapped it with an Anthony bandage. Drapes were cut and removed. Patient was successfully extubated and sent to PACU in stable condition.
[2017-03-21] MEDS ORDERED: OXYCODONE-ACETAMINOPHEN 5-325 MG TABLET PO PRN ×2 (09:16)
--- NOTE | 2017-03-21 09:16 | PDOC DISCHARGE SUMMARY ---
Discharge Summary (SDC) - Discharge Final Diagnosis: Status post right knee arthroscopic partial medial meniscectomy and chondroplasty Date of Surgery: 03/21/17 Discharge Date: 03/21/17 Condition: Good Treatment or Instructions: Patient instructed to follow up in 10-14 days. Patient instructed to keep dressing dry clean and intact for 4 days and then allowed to remove. At that point patient can shower and apply Band-Aids as needed. Patient can weight-bear as tolerated and do range of motion exercises as tolerated. Crutches for support and safety. Can wean crutches once stable on his feet. Patient instructed to call the office if patient develops fevers chills redness and drainage from the surgical sites. Prescriptions: Oxycodone HCl/Acetaminophen [Percocet 5-325 mg Tablet] 1 - 2 tab PO ASDIR PRN # 30 tablet PRN Reason: Discharge Diet: As Tolerated Respiratory Treatments at Home: Deep Breathing/Coughing Discharge Activity: No Driving - While on narcotics, Keep Legs Elevated, No Lifting/Push/Pulling, Slowly Increase Activity Home Care Assistance: None Needed Adaptive Devices on Discharge: Axillary Crutches - If needed for balance Report the Following to Your Physician Immediately: Shortness of Breath, Vomiting, Increase in Pain, Unusual Bleeding, Redness, Swelling, Warmth, Increased Soreness, Drainage-Yellow, Drainage-Sanders, Drainage-Green, Drainage- Foul Smelling
[2017-03-21 14:12] VITALS: BP 123/66
[2017-03-21] MEDS ORDERED: SUCCINYLCHOLINE CHLORIDE INJ 200 MG/10 ML VIAL ONE (14:49)
[2017-03-21] MEDS ORDERED: PROMETHAZINE HCL INJ 25 MG/1 ML VIAL IV ONE (15:00)
== END 2017-03-21 13:30 | disposition home or self-care (01) ==
LOC: OROUT 05:21
PROVIDERS: ATTEND Orthopaedic Surgery
PROC: 0SBC4ZZ Excision of Right Knee Joint, Percutaneous Endoscopic Approach (ICD-10-PCS; principal; 2017-03-21 07:30)
DX: S83.241A Other tear of medial meniscus, current injury, right knee, initial encounter (principal); M94.261 Chondromalacia, right knee; X58.XXXA Exposure to other specified factors, initial encounter; E66.9 Obesity, unspecified; I51.7 Cardiomegaly; Z68.41 Body mass index [BMI] 40.0-44.9, adult; Z85.42 Personal history of malignant neoplasm of other parts of uterus; Z79.1 Long term (current) use of non-steroidal anti-inflammatories (NSAID)
CPT/HCPCS: 93005; 36415; 85025; 80048; 81001; 71020; 93010; 29881; J2250; J1100; J3010; J2270; J2550; J0330; J2405; J2704; J0690; J0131; 1400

== ENCOUNTER → 2017-04-04 | Outpatient (CLI) | payer BC ==
--- NOTE | 2017-04-04 13:27 | WOMENS IMAGING REPORT ---
EXAM DESCRIPTION: BILAT SCREENING MAMMO W/CAD COMPLETED DATE/TIME: 04/04/2017 1:00 pm REASON FOR STUDY: ROUTINE SCREENING; Z12.31 Z12.31 ENCNTR SCREEN MAMMOGRAM FOR MALIGNANT NEOPLASM O F JULIA COMPARISON: None. TECHNIQUE: Standard craniocaudal and mediolateral oblique views of each breast recorded using edenesa l acquisition. LIMITATIONS: None. FINDINGS: No masses, calcifications or architectural distortion. No areas of suspicion. Read with the assistance of CAD. .[facility] - R2 Cenova Version 1.3 .[facility] - R2 Cenova Version 1.3 .[facility] - R2 Cenova Version 2.4 .[facility] - R2 Cenova Version 2.4 .[facility] - R2 Biomedical [employer] Technologist Version 9.2 IMPRESSION: NORMAL MAMMOGRAM. BIRADS 1. BREAST DENSITY: b. There are scattered areas of fibroglandular density. BIRAD: 1 NEGATIVE RECOMMENDATION: ROUTINE SCREENING COMMENT: The patient has been notified of the results by letter per SA requirements. Additional no tification policies are in place for contacting patient with suspicious or incomplete findings. Quality ID #[id number]: The [employer] recommends an annual screening mammogram for women aged 40 years or over. This facility utilizes a reminder system to ensure that all patients receive reminder letters, and/or direct phone calls for appointments. This includes reminders for routine scr eening mammograms, diagnostic mammograms, or other Breast Imaging Interventions when appropriate. Th is patient will be placed in the appropriate reminder system. The [employer] (ACR) has developed recommendations for screening MRI of the breast s in certain patient populations, to be used in conjunction with mammography. Breast MRI surveillanc e may be appropriate for women with more than 20% lifetime risk of developing breast cancer as deter mined by genetic testing, significant family history of the disease, or history of mantle radiation f or Hodgkins Disease. ACR Practice Guidelines 2008. TECHNICAL DOCUMENTATION: FINDING NUMBER: (1) ASSESSMENT: (1) JOB ID: [id number] [employer]- All Rights Reserved
== END ==
LOC: WI 12:38
PROVIDERS: ATTEND Internal Medicine
DX: Z12.31 Encounter for screening mammogram for malignant neoplasm of breast (principal)
CPT/HCPCS: 77067; G0202

== ENCOUNTER → 2017-04-05 | Outpatient (CLI) | payer BC ==
--- NOTE | 2017-04-05 09:42 | RADIOLOGY REPORT (SQ) ---
EXAM DESCRIPTION: U/S THYROID/SFT TISS HD NECK COMPLETED DATE/TIME: 04/05/2017 9:33 am REASON FOR STUDY: BENIGN NEOPLASM OF THYROID GLAND D34 BENIGN NEOPLASM OF THYROID GLAND COMPARISON: None. TECHNIQUE: Dynamic and static dyer-scale images acquired of the thyroid gland. Selected additional c olor/power Doppler images recorded. All images stored to PACS. LIMITATIONS: None. FINDINGS: RIGHT LOBE: Right lobe thyroid is 4.2 x 1.6 x 1.6 cm in size. It in the right mid to lowe r pole, a 1.1 x 0.9 cm complex cyst is present. Homogeneous echotexture. LEFT LOBE: Left lobe thyroid 4.4 x 1.6 x 1.5 cm in size. In the left midpole gland, a 5 mm colloid c yst is present. Homogeneous echotexture. ISTHMUS: 5 mm in thickness with heterogeneous echotexture. No definite well-circumscribed thyroid i sthmus mass OTHER: No other significant finding. IMPRESSION: Bilateral small thyroid cystic lesions. Comparison with any older outside images recomm ended TECHNICAL DOCUMENTATION: JOB ID: [id number] [employer]- All Rights Reserved
== END ==
LOC: RAD 08:51
PROVIDERS: ATTEND Internal Medicine
DX: D34 Benign neoplasm of thyroid gland (principal)
CPT/HCPCS: 76536

== ENCOUNTER → 2017-04-29 | Outpatient (CLI) | payer BC ==
--- NOTE | 2017-04-29 12:29 | RADIOLOGY REPORT (SQ) ---
EXAM DESCRIPTION: SHOULDER RIGHT 2 OR MORE VIEWS COMPLETED DATE/TIME: 04/29/2017 11:32 am REASON FOR STUDY: COMPLETE ROTATR-CUFF TEAR/RUPTR OF R SHOULDER, NOT TRAUMA M75.121 COMPLETE ROTATR -CUFF TEAR/RUPTR OF R SHOULDER, NOT T COMPARISON: None. NUMBER OF VIEWS: Three views. TECHNIQUE: Internal rotation, external rotation, and Y view images acquired of the right shoulder. LIMITATIONS: None. FINDINGS: MINERALIZATION: Normal. BONES: No acute fracture or dislocation. No worrisome bone lesions. JOINTS: Mild osteoarthritis of the acromioclavicular joint. VISUALIZED LUNGS AND RIBS: No pneumothorax. No rib fracture. SOFT TISSUES: No radiopaque foreign body. OTHER: No other significant finding. IMPRESSION: MILD OSTEOARTHRITIS ACROMIOCLAVICULAR JOINT. NO RADIOGRAPHIC EVIDENCE OF ACUTE INJURY. TECHNICAL DOCUMENTATION: JOB ID: [id number] [employer]- All Rights Reserved
== END ==
LOC: OD 11:18
PROVIDERS: ATTEND Internal Medicine
DX: M75.121 Complete rotator cuff tear or rupture of right shoulder, not specified as traumatic (principal); M19.011 Primary osteoarthritis, right shoulder

== ENCOUNTER 2017-07-30 13:51 | Emergency (ER) | payer BC ==
--- NOTE | 2017-07-30 14:40 | ER Document Report ---
ED Medical Screen (RME) - General Chief Complaint: Chest Pain Stated Complaint: CHEST PAIN Time Seen by Provider: 07/30/17 14:35 Notes: 61-year-old female, past medical history hypertension, presents with 7 hours of left chest tightness and pain is constant. She had this in 2006 had a negative stress test in [place]. She denies shortness of breath or injury. PE: NAD. RRR. Lungs CTAB. I have greeted and performed a rapid initial assessment of this patient. A comprehensive ED assessment and evaluation of the patient, analysis of test results and completion of the medical decision making process will be conducted by additional ED providers. TRAVEL OUTSIDE OF THE [place] IN LAST 30 DAYS: No - Related Data Allergies/Adverse Reactions: No Known Allergies Allergy (Verified 03/14/17 08:06) Past Medical History - Social History Chew tobacco use (# tins/day): No Frequency of alcohol use: None Drug Abuse: None - Past Medical History Cardiac Medical History: Denies: Hx Coronary Artery Disease, Hx Heart Attack, Hx Hypertension Pulmonary Medical History: Denies: Hx Asthma, Hx Bronchitis, Hx COPD, Hx Pneumonia Neurological Medical History: Denies: Hx Cerebrovascular Accident, Hx Seizures Renal/ Medical History: Denies: Hx Peritoneal Dialysis Musculoskeltal Medical History: Denies Hx Arthritis Past Surgical History: Reports: Hx Section - x 1, Hx Cholecystectomy, Hx Hysterectomy, Hx Orthopedic Surgery - R knee surgery - Immunizations Hx Diphtheria, Pertussis, Tetanus Vaccination: No History of Influenza Vaccine for 01/2017 - 06/2017 Season: Yes Influenza Administration Date for 01/2017 - 06/2017 Season: 01/14/17 Physical Exam - Vital signs Vitals: Temp Pulse Resp BP Pulse Ox 97.9 F 81 16 150/91 H 94 07/30/17 14:01 07/30/17 14:01 07/30/17 14:01 07/30/17 14:01 07/30/17 14:01 Course - Vital Signs Vital signs: Temp Pulse Resp BP Pulse Ox 97.9 F 81 16 150/91 H 94 07/30/17 14:01 07/30/17 14:01 07/30/17 14:01 07/30/17 14:01 07/30/17 14:01 Doctor's Discharge - Discharge Referrals: SONIA EPSTEIN MD [Primary Care Provider] - Follow up as needed
--- NOTE | 2017-07-30 15:26 | RADIOLOGY REPORT (SQ) ---
EXAM DESCRIPTION: CHEST 2 VIEWS COMPLETED DATE/TIME: 07/30/2017 3:16 pm REASON FOR STUDY: chest pain COMPARISON: Chest films 03/14/2017, 11/07/2016, 05/16/2016 EXAM PARAMETERS: NUMBER OF VIEWS: two views TECHNIQUE: Digital Frontal and Lateral radiographic views of the chest acquired. RADIATION DOSE: NA LIMITATIONS: none FINDINGS: LUNGS AND PLEURA: No opacities, masses or pneumothorax. No pleural effusion. MEDIASTINUM AND HILAR STRUCTURES: No masses or contour abnormalities. HEART AND VASCULAR STRUCTURES: Mild cardiomegaly, stable BONES: No acute findings. HARDWARE: Clips right upper quadrant post cholecystectomy OTHER: No other significant finding. IMPRESSION: NO ACUTE RADIOGRAPHIC FINDING IN THE CHEST. TECHNICAL DOCUMENTATION: JOB ID: [id number] [email or web address]- All Rights Reserved Reading location - IP/workstation name: [email or web address]
--- NOTE | 2017-07-30 15:27 | ER Document Report ---
ED Cardiac - General Chief Complaint: Chest Pain Stated Complaint: CHEST PAIN Time Seen by Provider: 07/30/17 14:35 Mode of Arrival: Ambulatory Information source: Patient Notes: This is a 61-year-old female who presents to the emergency room with left-sided sharp nonradiating chest pain since this morning. Patient states that last seconds at a time and then goes away but will come back. She denies any shortness of breath. She denies any worsening with exertion. She denies any calf pain or swelling. TRAVEL OUTSIDE OF THE [place] IN LAST 30 DAYS: No - HPI Patient complains to provider of: Chest pain Use of: denies: Alcohol, Amphetamines, Bath salts, Caffeine, Cocaine, Decongestants, Other Was the onset of pain: Gradual Is the pain a: New problem Chest pain location: Under breast Quality of pain: Sharp Chest pain radiation location: denies: Left jaw, Left arm, Left shoulder, Right jaw, Right arm, Right shoulder, Back, Neck, None Severity now: None Severity at worst: Mild Pain level currently: Denies Chest pain precipitating factors: Denies precipitating factor Cardiac risk factors: denies: Diabetes, Hypertension, Smoker, + Family history, Dyslipidemia Positive cardiac history: No Associated symptoms: denies: Back pain, Heartburn, Hypotension Exacerbated by: Denies Relieved by: Nothing Similar symptoms previously: No Recently seen / treated by doctor: Yes - Related Data Allergies/Adverse Reactions: No Known Allergies Allergy (Verified 03/14/17 08:06) Past Medical History - General Information source: Patient - Social History Smoking Status: Never Smoker Cigarette use (# per day): No Chew tobacco use (# tins/day): No Frequency of alcohol use: None Drug Abuse: None Family History: None Patient has suicidal ideation: No Patient has homicidal ideation: No - Past Medical History Cardiac Medical History: Denies: Hx Coronary Artery Disease, Hx Heart Attack, Hx Hypertension Pulmonary Medical History: Denies: Hx Asthma, Hx Bronchitis, Hx COPD, Hx Pneumonia Neurological Medical History: Denies: Hx Cerebrovascular Accident, Hx Seizures Renal/ Medical History: Denies: Hx Peritoneal Dialysis Musculoskeltal Medical History: Denies Hx Arthritis Past Surgical History: Reports: Hx Section - x 1, Hx Cholecystectomy, Hx Hysterectomy, Hx Orthopedic Surgery - R knee surgery - Immunizations Hx Diphtheria, Pertussis, Tetanus Vaccination: No Review of Systems - Review of Systems Constitutional: No symptoms reported EENT: No symptoms reported Cardiovascular: See HPI Respiratory: No symptoms reported Gastrointestinal: No symptoms reported Genitourinary: No symptoms reported Female Genitourinary: No symptoms reported Musculoskeletal: No symptoms reported Skin: No symptoms reported Hematologic/Lymphatic: No symptoms reported Neurological/Psychological: No symptoms reported Physical Exam - Vital signs Vitals: Temp Pulse Resp BP Pulse Ox 97.9 F 81 16 150/91 H 94 07/30/17 14:01 07/30/17 14:01 07/30/17 14:01 07/30/17 14:01 07/30/17 14:01 Notes: Physical exam: GENERAL: 61-year-old female, alert and oriented 3, no acute distress. HEAD: Atraumatic, normocephalic. EYES: Pupils equal round and reactive to light, extraocular movements intact, sclera anicteric, conjunctiva are normal. ENT: TMs normal, nares patent, oropharynx clear without exudates. Moist mucous membranes. NECK: Normal range of motion, supple without obvious mass or JVD. LUNGS: Breath sounds clear to auscultation bilaterally and equal. No wheezes rales or rhonchi. HEART: Regular rate and rhythm without murmurs, rubs or gallops. ABDOMEN: Soft, normoactive bowel sounds. No tenderness to palpation. No guarding, no rebound. No masses appreciated. EXTREMITIES: Normal range of motion, no pitting or edema. No clubbing or cyanosis. NEUROLOGICAL: Cranial nerves II through XII grossly intact. Normal speech, moving all extremities. PSYCH: Normal mood, normal affect. SKIN: Warm, Dry, normal turgor, no rashes or lesions noted. Course - Re-evaluation Re-evalutation: 07/30/17 20:48 Note: Patient observed on monitor for several hours which has not showed any arrhythmia. Patient's repeat troponins have been negative. Her heart score is 3 showing low risk. I discussed case with Dr. Epstein who is willing to see the patient in the office tomorrow. - Vital Signs Vital signs: Temp Pulse Resp BP Pulse Ox 98.4 F 81 21 H 148/85 H 99 07/30/17 21:01 07/30/17 14:01 07/30/17 19:01 07/30/17 19:01 07/30/17 19:01 - Laboratory Result Diagrams: 07/30/17 14:57 07/30/17 14:57 Laboratory results interpreted by me: 07/30/17 07/30/17 14:57 14:57 Hgb 11.5 L MCV 75 L MCH 23.8 L MCHC 31.5 L RDW 16.6 H BUN 21 H Glucose 139 H - Diagnostic Test Radiology reviewed: Image reviewed, Reports reviewed - CTA shows no evidence of pulmonary embolism - EKG Interpretation by Me Rate: Normal Rhythm: NSR - EKG shows normal sinus rhythm with a ventricular rate of 81, left axis deviation, no acute ST-T wave changes. No significant change from an EKG performed on March 14, 2017 Discharge - Discharge Clinical Impression: Atypical chest pain Condition: Stable Disposition: HOME, SELF-CARE Additional Instructions: As we discussed, your EKG and blood work looked good. CT of the chest showed no evidence of blood clots. I did speak with Dr. Epstein who would like to see you in the office tomorrow. You can come in during the day as a walk-in. Return to the ER for any concerns if the chest pain is getting worse or you feel you are getting worse. Referrals: SOINA EPSTEIN MD [Primary Care Provider] - Follow up tomorrow
[2017-07-30 15:28] LABS: ABSOLUTE BASOPHILS # (AUTO) 0.1 10^3/uL (0.0-0.2); ABSOLUTE EOSINOPHILS # (AUTO) 0.3 10^3/uL (0.0-0.6); ABSOLUTE LYMPHOCYTES (AUTO) 2.3 10^3/uL (0.5-4.7); ABSOLUTE MONOCYTES (AUTO) 0.7 10^3/uL (0.1-1.4); ABSOLUTE NEUT (AUTO) 6.1 10^3/uL (1.7-8.2); EOSINOPHILS % (AUTO) 3.2 % (0-6); HEMATOCRIT 36.4 % (36.0-47.0); HEMOGLOBIN 11.5 g/dL (12.0-15.5); LYMPHOCYTES % (AUTO) 24.6 % (13-45); MEAN CORPUSCULAR HEMOGLOBIN 23.8 pg (27.0-33.4); MEAN CORPUSCULAR HGB CONC 31.5 g/dL (32.0-36.0); MEAN CORPUSCULAR VOLUME 75 fl (80-97); MONOCYTES % (AUTO) 7.4 % (3-13); PLATELET COUNT 293 10^3/uL (150-450); RED BLOOD COUNT 4.83 10^6/uL (3.72-5.28); RED CELL DISTRIBUTION WIDTH 16.6 % (11.5-14.0); SEGMENTED NEUTROPHILS % (AUTO) 63.8 % (42-78); TOTAL CELLS COUNTED % (AUTO) 100 %; WHITE BLOOD COUNT 9.5 10^3/uL (4.0-10.5)
[2017-07-30 15:55] LABS: ALANINE AMINOTRANSFERASE 37 U/L (9-52); ALBUMIN 3.9 g/dL (3.5-5.0); ALKALINE PHOSPHATASE 87 U/L (38-126); ANION GAP 13 (5-19); ASPARTATE AMINO TRANSFERASE 25 U/L (14-36); BILIRUBIN,DIRECT 0.2 mg/dL (0.0-0.4); BILIRUBIN,TOTAL 0.2 mg/dL (0.2-1.3); BLOOD UREA NITROGEN 21 mg/dL (7-20); CALCIUM 9.6 mg/dL (8.4-10.2); CARBON DIOXIDE 29 mmol/L (22-30); CHLORIDE 102 mmol/L (98-107); CREATINE KINASE 82 U/L (30-135); GLUCOSE 139 mg/dL (75-110); POTASSIUM 4.5 mmol/L (3.6-5.0); SODIUM 143.7 mmol/L (137-145); TOTAL PROTEIN 6.7 g/dL (6.3-8.2)
[2017-07-30] MEDS ORDERED: MORPHINE SULFATE 10 MG/ML INJ IV ONE (18:12)
[2017-07-30] MEDS ORDERED: ONDANSETRON HCL INJ/PF 4 MG/2 ML SDV IV ONE (18:12)
--- NOTE | 2017-07-30 18:42 | RADIOLOGY REPORT (SQ) ---
EXAM DESCRIPTION: CTA CHEST COMPLETED DATE/TIME: 07/30/2017 6:28 pm REASON FOR STUDY: cp COMPARISON: None. TECHNIQUE: CT scan of the chest performed using helical scanning technique with dynamic intravenous contrast injection. Images reviewed with lung, soft tissue and bone windows. Reconstructed coronal and sagittal MPR images reviewed. Additional 3 dimensional post-processing performed to develop Maximal Intensity Projection images (PR P). All images stored on PACS. All CT scanners at this facility use dose modulation, iterative reconstruction, and/or weight based d osing when appropriate to reduce radiation dose to as low as reasonably achievable (ALARA). [facility]: Dose Right [facility]: CareDose [facility]: Dose Right [facility]: Teradose 4D [facility]: Advanced Personalized Diagnostics CONTRAST TYPE AND DOSE: contrast/concentration: Isovue 370.00 mg/ml; Total Contrast Delivered: 80.0 ml; Total Saline Delivered: 70.0 ml Contrast bolus adequate for pulmonary arteries and aorta. RENAL FUNCTION: BUN 21 creatinine 0.76. RADIATION DOSE: CT Rad equipment meets quality standard of care and radiation dose reduction techniq ues were employed. CTDIvol: 24.8 - 38.2 mGy. DLP: 1316 mGy-cm. . LIMITATIONS: None. FINDINGS: LUNGS AND PLEURA: No masses, infiltrates, pneumothorax. No pleural effusions, calcificati ons. AORTA AND GREAT VESSELS: No aneurysm. No dissection. HEART: No pericardial effusion. No significant coronary artery calcifications. PULMONARY ARTERIES: No emboli visualized in the main pulmonary arteries or the segmental branches. HILAR AND MEDIASTINAL STRUCTURES: No identified masses or abnormal nodes. HARDWARE: None in the chest. UPPER ABDOMEN: No significant findings. Limited exam. THYROID AND OTHER SOFT TISSUES: No masses. No adenopathy. BONES: No acute or significant finding. 3D MIPS: Confirm above findings. OTHER: No other significant finding. IMPRESSION: NORMAL CTA OF THE CHEST. NO PULMONARY EMBOLI. COMMENT: Quality ID # [id number]: Final reports with documentation of one or more dose reduction techniques (e.g., Automated exposure control, adjustment of the mA and/or kV according to patient size, use of iterative reconstruction technique) TECHNICAL DOCUMENTATION: JOB ID: [id number] [employer]- All Rights Reserved Reading location - IP/workstation name: [email or web address]
[2017-07-30 19:09] VITALS: BP 148/85
--- NOTE | 2017-07-30 20:56 | EKG REPORT ---
SEVERITY:- ABNORMAL ECG - SINUS RHYTHM PROBABLE LEFT ATRIAL ABNORMALITY LEFT AXIS DEVIATION LEFT VENTRICULAR HYPERTROPHY : Confirmed by: Darlin Rodríguez 30-Jul-2017 20:56:02
== END 2017-07-30 21:40 | disposition home or self-care (01) ==
LOC: ER 13:51
DX: R07.89 Other chest pain (principal)
CPT/HCPCS: 93005; 99285; 96374; 96375; 36415; 82550; 85025; 80053; 84484; 71046; 71275; 93010; J2270; J2405

== ENCOUNTER 2017-08-01 10:44 | Day surgery (SDC) | payer BC ==
[2017-07-31 12:22] LABS: APPEARANCE,URINE SLIGHTLY-CLOUDY; BILIRUBIN,URINE NEGATIVE (NEGATIVE); COLOR,URINE YELLOW; GLUCOSE, URINE NEGATIVE (NEGATIVE); KETONES,URINE NEGATIVE (NEGATIVE); LEUKOCYTE ESTERASE,URINE LARGE (NEGATIVE); NITRITE,URINE NEGATIVE (NEGATIVE); PROTEIN,URINE NEGATIVE (NEGATIVE); URINE SPECIFIC GRAVITY 1.025
[~2017-08-01 10:44] MED LIST changes: +DEXAMETHASONE SOD PHOSPHATE INJ 4 MG/1 ML VIAL ONE; +GLYCOPYRROLATE INJ 0.4 MG/2 ML VIAL ONE; +KETOROLAC TROMETHAMINE 60 MG/2 ML SDV ONE; +LIDOCAINE 2% INJ-PF (20 MG/ML) 2 ML AMPUL ONE; +METOCLOPRAMIDE HCL INJ/PF 10 MG/2 ML SDV ONE; +NEOSTIGMINE METHYLSULFATE 10 MG/10 ML VIAL ONE; +ONDANSETRON HCL INJ/PF 4 MG/2 ML SDV ONE; +ROCURONIUM BROMIDE INJ 50 MG/5 ML VIAL IV ONE; +SUCCINYLCHOLINE CHLORIDE INJ 200 MG/10 ML VIAL ONE
[2017-08-01] MEDS ORDERED: CEFAZOLIN SODIUM 2 GM in NORMAL SALINE 100 ML IV PRN (11:05)
[2017-08-01] MEDS ORDERED: FENTANYL CITRATE INJ/PF 100 MCG/2 ML AMPUL ONE (11:59)
[2017-08-01] MEDS ORDERED: FENTANYL CITRATE INJ/PF 250 MCG/5 ML AMPULE ONE (11:59)
[2017-08-01] MEDS ORDERED: PROPOFOL INJ 200 MG/20 ML VIAL IV ONE (12:00)
[2017-08-01] MEDS ORDERED: ACETAMINOPHEN 100 ML IV ONE (12:00)
[2017-08-01] MEDS ORDERED: MIDAZOLAM 2 MG/2 ML INJ ONE (12:00)
[2017-08-01] MEDS ORDERED: BUPIVACAINE HCL 0.5 % INJ/PF 30 ML SDV ONE (12:47)
[2017-08-01] MEDS ORDERED: EPINEPHRINE INJ/PF 1 MG/1 ML AMPULE ONE (12:47)
[2017-08-01] MEDS ORDERED: ONDANSETRON HCL INJ/PF 4 MG/2 ML SDV IV PRN (14:39)
[2017-08-01] MEDS ORDERED: PROMETHAZINE HCL INJ 25 MG/1 ML VIAL IV PRN ×2 (14:39)
[2017-08-01] MEDS ORDERED: MEPERIDINE HCL/PF INJ 25 MG/1 ML DISP.SYRIN IV PRN (14:39)
[2017-08-01] MEDS ORDERED: DIPHENHYDRAMINE HCL 50 MG/ML VIAL IV PRN (14:39)
[2017-08-01] MEDS ORDERED: FENTANYL CITRATE INJ/PF 100 MCG/2 ML AMPUL IV PRN ×3 (14:39)
[2017-08-01] MEDS ORDERED: OXYCODONE-ACETAMINOPHEN 5-325 MG TABLET PO PRN ×4 (14:39→16:21)
--- NOTE | 2017-08-01 16:07 | Operative Report ---
Operative Report DATE OF SURGERY: 08/01/17 PREOPERATIVE DIAGNOSIS: Right full-thickness rotator cuff tear POSTOPERATIVE DIAGNOSIS: Same with significant synovitis OPERATION: Right shoulder arthroscopy with rotator cuff repair SURGEON: ZAKIYA BROWN ANESTHESIA: GA COMPLICATIONS: none ESTIMATED BLOOD LOSS: Less than 20 mL INTRAOPERATIVE FINDINGS: As above PROCEDURE: IMPLANTS: 5.5 mm bio composite corkscrew with suture tape DESCRIPTION OF PROCEDURE: Patient was brought to the operating room placed in supine position. After successfully induced and intubated the patient patient was placed in the beachchair position the head and endotracheal tube was secured appropriately. The right shoulder was prepped and draped in a normal surgical fashion. A timeout was done identifying the right shoulder as the correct site. After inflating the glenohumeral joint with sterile saline solution an 11 blade was used to establish the posterior portal. The arthroscope was introduced and return of fluid was seen showing that we successfully penetrated the glenohumeral joint. With the use of spinal needle we're able to angela the anterior portal and using an 11 blade able to establish anterior portal. A cannula was introduced through the anterior portal. At this point diagnostic scope was done. Patient known to see significant synovitis that included the labrum and anchor the biceps. The biceps was attached with no evidence of a SLAP lesion. There is no subluxation and no partial tearing of the long head of the bicep therefore no biceps tenodesis was performed. Return attention to the rotator cuff tear. A lateral portal was established 11 blade. 4.0mm shaver was introduced and was used to prepare the tear and the frontal bone for preparation of anchor placement. Once I was satisfied with the preparation I then redirected my scope into the subacromial space. Formal bursectomy was accomplished with the shaver and radiofrequency ablator exposing the tendon and visualizing the full- thickness tear on the subacromial space. A percutaneous incision was then just adjacent to the acromion on the lateral aspect. Through this percutaneous hole the awl was used to prepare the hole for an anchor. [place] was percutaneously sent flushed with the bone just adjacent to the articular margin. Sutures were passed through the anterior portal for proper suture management. With the use of the scorpion and I proceeded to pass the sutures through the rotator cuff tendon with proper suture management was able to pass the strands either through percutaneous hole or the anterior portal. Once I was satisfied with placement of all my sutures I then proceeded to do my arthroscopic knots. At this point the strands were used to do our lateral row. Bicomposite show out was used and the lateral aspect of the humerus was then cleaned off with a shaver and electrocautery. Once identified once I was replacement I proceeded to use my awl to do my hole. This this point the sutures were adequately tensioned and subluxed for inserted and secured securing and increasing the footprint of the rotator cuff repair. Remaining strands were cut with the arthroscopic cutter. Final pictures were taking showing my repair. At this point fluid from the shoulder was removed camera and instruments were all removed. I proceeded to close my portal sites with 3-0 Monocryl, Dermabond and covered with 4 x 4 dressing followed by ABDs pads and Medipore tape was applied. Patient was placed in a sling and returned to supine position where he was successfully extubated and taken to PACU in stable condition.
--- NOTE | 2017-08-01 16:10 | Discharge Summary ---
Discharge Summary (SDC) - Discharge Final Diagnosis: Right shoulder arthroscopic rotator cuff repair Date of Surgery: 08/01/17 Discharge Date: 08/01/17 Condition: Good Treatment or Instructions: Patient is instructed to follow up in 10-14 days. Patient instructed to remove dressing in 4 days then can shower and apply Band- Aids as needed. Patient to wear sling for comfort but okay to remove for shower and pendulum exercises. Pendulum exercises are instructed to be done 3 times a day ideally with breakfast, lunch, dinners and showers. Patient instructed to call if there is any signs of redness or drainage fevers or chills. Prescriptions: Oxycodone HCl/Acetaminophen [Percocet 5-325 mg Tablet] 1 - 2 tab PO ASDIR PRN # 40 tablet PRN Reason: Referrals: SONIA EPSTEIN MD [Primary Care Provider] - Discharge Diet: As Tolerated Respiratory Treatments at Home: Deep Breathing/Coughing Discharge Activity: No Driving, No Lifting/Push/Pulling, Walk Frequently Home Care Assistance: None Needed Report the Following to Your Physician Immediately: Shortness of Breath, Vomiting, Increase in Pain, Fever over 101 Degrees, Unusual Bleeding, Swelling, Warmth, Drainage-Yellow, Drainage-Sanders, Drainage-Green, Drainage-Foul Smelling
[2017-08-01] MEDS ORDERED: ONDANSETRON HCL INJ/PF 4 MG/2 ML SDV ONE (17:00)
[2017-08-01 18:50] VITALS: BP 155/91
== END 2017-08-01 18:35 | disposition home or self-care (01) ==
LOC: OROUT 10:44
PROVIDERS: ATTEND Orthopaedic Surgery
PROC: 0LM14ZZ Reattachment of Right Shoulder Tendon, Percutaneous Endoscopic Approach (ICD-10-PCS; principal; 2017-08-01 13:00)
DX: M75.121 Complete rotator cuff tear or rupture of right shoulder, not specified as traumatic (principal); E78.00 Pure hypercholesterolemia, unspecified; M25.511 Pain in right shoulder; E66.9 Obesity, unspecified; Z68.42 Body mass index [BMI] 45.0-49.9, adult; Z79.1 Long term (current) use of non-steroidal anti-inflammatories (NSAID); Z85.41 Personal history of malignant neoplasm of cervix uteri
CPT/HCPCS: 81001; 29827; C1713; J2250; J3490 ×3; J0690; J1100; J0171; J1885; J3010 ×2; J2765; J0330; J2405; J2704; J0131; 1630

== ENCOUNTER 2018-11-08 07:29 | Emergency (ER) | payer BC ==
[2018-11-08] MEDS ORDERED: ASPIRIN 81 MG TABLET, CHEWABLE PO ONE (07:53)
[2018-11-08 08:13] LABS: ABSOLUTE BASOPHILS # (AUTO) 0.1 10^3/uL (0.0-0.2); ABSOLUTE EOSINOPHILS # (AUTO) 0.3 10^3/uL (0.0-0.6); ABSOLUTE LYMPHOCYTES (AUTO) 2.1 10^3/uL (0.5-4.7); ABSOLUTE MONOCYTES (AUTO) 0.6 10^3/uL (0.1-1.4); ABSOLUTE NEUT (AUTO) 5.7 10^3/uL (1.7-8.2); HEMATOCRIT 35.5 % (36.0-47.0); HEMOGLOBIN 11.5 g/dL (12.0-15.5); LYMPHOCYTES % (AUTO) 24.3 % (13-45); MEAN CORPUSCULAR HEMOGLOBIN 25.4 pg (27.0-33.4); MEAN CORPUSCULAR HGB CONC 32.4 g/dL (32.0-36.0); MEAN CORPUSCULAR VOLUME 78 fl (80-97); PLATELET COUNT 264 10^3/uL (150-450); RED BLOOD COUNT 4.52 10^6/uL (3.72-5.28); RED CELL DISTRIBUTION WIDTH 16.4 % (11.5-14.0); SEGMENTED NEUTROPHILS % (AUTO) 64.7 % (42-78); TOTAL CELLS COUNTED % (AUTO) 100 %; WHITE BLOOD COUNT 8.8 10^3/uL (4.0-10.5)
--- NOTE | 2018-11-08 08:17 | RADIOLOGY REPORT (SQ) ---
EXAM DESCRIPTION: CHEST SINGLE VIEW COMPLETED DATE/TIME: 11/08/2018 8:05 am REASON FOR STUDY: chest pain COMPARISON: 2017, 2016. NUMBER OF VIEWS: One view. TECHNIQUE: Single frontal radiographic view of the chest acquired. LIMITATIONS: None. FINDINGS: LUNGS AND PLEURA: Low lung volumes. This results in vascular crowding and central congest ion. Allowing for this, relatively clear. MEDIASTINUM AND HILAR STRUCTURES: Prominent right peritracheal mediastinal density looks venous, development technician av and accentuated by low lung volumes and portable technique. No developing mass. HEART AND VASCULAR STRUCTURES: Heart normal in size. Normal vasculature. BONES: No acute findings. HARDWARE: None in the chest. OTHER: No other significant finding. IMPRESSION: Low lung volumes. No acute abnormality detected. TECHNICAL DOCUMENTATION: JOB ID: [id number] [employer]- All Rights Reserved Reading location - IP/workstation name: [email or web address]
[2018-11-08 08:19] LABS: ALANINE AMINOTRANSFERASE 32 U/L (9-52); ALBUMIN 3.9 g/dL (3.5-5.0); ALKALINE PHOSPHATASE 94 U/L (38-126); ANION GAP 10 (5-19); ASPARTATE AMINO TRANSFERASE 35 U/L (14-36); BILIRUBIN,DIRECT 0.2 mg/dL (0.0-0.4); BILIRUBIN,TOTAL 0.3 mg/dL (0.2-1.3); BLOOD UREA NITROGEN 24 mg/dL (7-20); CALCIUM 9.3 mg/dL (8.4-10.2); CARBON DIOXIDE 25 mmol/L (22-30); CHLORIDE 108 mmol/L (98-107); CREATINE KINASE 239 U/L (30-135); GLUCOSE 127 mg/dL (75-110); TOTAL PROTEIN 6.7 g/dL (6.3-8.2)
[2018-11-08 08:22] LABS: POTASSIUM 4.3 mmol/L (3.6-5.0)
--- NOTE | 2018-11-08 08:27 | ER Document Report ---
ED General - General Chief Complaint: Chest Pain Stated Complaint: CHEST PAIN Time Seen by Provider: 11/08/18 07:56 Primary Care Provider: SONIA EPSTEIN MD [Primary Care Provider] - Follow up as needed TRAVEL OUTSIDE OF THE [place] IN LAST 30 DAYS: No - HPI Notes: Patient is a 63-year-old female who presents to the emergency department for evaluation of elevated blood pressure as well as chest pain. She states over the last several months her blood pressures have been high. They have been running in the 160s to 170 systolic. She checks them frequently at work. She states that she said intermittent chest pain for some time. She points to an area on the inferior aspect of her sternum, about 3 cm wide. It does not radiate. She describes it as a tightness. She denies any associated nausea, diaphoresis, near syncope. She states that on occasion she notes some palp itations with it. She denies any exacerbating or relieving factors. She states that times it comes on at rest or while sleeping. It is not brought about by significant exertion. Patient states over the last 2 days she noticed her systolic blood pressure was in the 190s, so she presents to the ED for further evaluation. She has not yet seen her primary care physician regarding this, as she is trying to save money to be able to afford the co-pay. - Related Data Allergies/Adverse Reactions: No Known Allergies Allergy (Verified 11/08/18 07:30) Home Medications: None Past Medical History - General Information source: Patient - Social History Smoking Status: Never Smoker Chew tobacco use (# tins/day): No Frequency of alcohol use: None Drug Abuse: None Family History: CAD Patient has suicidal ideation: No Patient has homicidal ideation: No - Past Medical History Cardiac Medical History: Reports: Hx Hypercholesterolemia - Previously treated, untreated at this time Denies: Hx Heart Attack Pulmonary Medical History: Denies: Hx Asthma, Hx Bronchitis, Hx COPD, Hx Pneumonia Neurological Medical History: Denies: Hx Cerebrovascular Accident, Hx Seizures Renal/ Medical History: Denies: Hx Peritoneal Dialysis Musculoskeletal Medical History: Denies Hx Arthritis Past Surgical History: Reports: Hx Section - x 1, Hx Cholecystectomy, Hx Hysterectomy, Hx Orthopedic Surgery - R knee surgery - Immunizations Hx Diphtheria, Pertussis, Tetanus Vaccination: No Review of Systems - Review of Systems Constitutional: No symptoms reported EENT: No symptoms reported Cardiovascular: See HPI Respiratory: No symptoms reported Gastrointestinal: No symptoms reported Genitourinary: No symptoms reported Musculoskeletal: No symptoms reported Skin: No symptoms reported Neurological/Psychological: No symptoms reported Physical Exam - Vital signs Vitals: Temp Pulse Resp BP Pulse Ox 97.6 F 81 16 197/90 H 97 11/08/18 07:33 11/08/18 07:33 11/08/18 07:33 11/08/18 07:33 11/08/18 07:33 - Notes Notes: Vital signs reviewed, please refer to chart. Head is normocephalic, atraumatic. Pupils equal round, reactive to light. Neck is supple without meningismus. Heart is regular rate and rhythm. Lungs are clear to auscultation bilaterally. Abdomen is soft, nontender, normoactive bowel sounds throughout. Extremities without cyanosis, clubbing. Posterior calves are nontender. She does have 1+ pitting edema at the ankles bilaterally. Peripheral pulses are equal. Skin is warm and dry. Patient is awake, alert, neurological exam is nonfocal. Course - Re-evaluation Re-evalutation: 11/08/18 08:26 Patient presents emergency department for evaluation. This is a 63-year-old female with elevated blood pressure as well as chest pain. I explained to her that she needs to see her primary care physician in regards to blood pressure control. I also recommend that she restart her cholesterol medication. She voiced understanding to this. As far as her chest pain, it is certainly not typical anginal type pain. Her risk factors include obesity and premature family history, but her heart score is still low. EKG is unremarkable for any acute changes. Will order cardiac enzymes with delta troponin. Patient is chest pain-free at this time. She is instructed to notify us of any changes in her status, will continue to monitor. 11/08/18 11:13 Patient did have a recurrent episode of chest pain here. She had repeat EKG which was unchanged. Patient does have a heart score of 3. Her pain is certainly atypical. This is not a new pain. She had negative troponins x2. At this point I suggest that the patient follow-up closely with primary care. She absolutely needs to seek out treatment for hypertension. She voiced understanding to this. She should also discuss the possibility of an outpatient cardiac evaluation. She did have a negative stress test although it was several years ago. Certainly she is told she needs to address her risk factors more aggressively. She voiced understanding to this. She is to return to the emergency department with worsening or new concerning symptoms of any sort. - Vital Signs Vital signs: Temp Pulse Resp BP Pulse Ox 97.6 F 81 20 171/93 H 99 11/08/18 07:33 11/08/18 07:33 11/08/18 11:01 11/08/18 11:01 11/08/18 11:01 - Laboratory Result Diagrams: 11/08/18 07:51 11/08/18 07:51 Laboratory results interpreted by me: 11/08/18 11/08/18 11/08/18 07:51 07:51 07:51 Hgb 11.5 L Hct 35.5 L MCV 78 L MCH 25.4 L RDW 16.4 H Chloride 108 H BUN 24 H Glucose 127 H Creatine Kinase 239 H CK-MB (CK-2) 5.15 H - Diagnostic Test Radiology reviewed: Reports reviewed Radiology results interpreted by me: 11/08/18 08:26 Chest X-Ray 11/08/18 07:53 IMPRESSION: Low lung volumes. No acute abnormality detected. - EKG Interpretation by Me Additional EKG results interpreted by me: 11/08/18 11:14 Sinus mechanism with a rate of 80 bpm. Left axis deviation. Nonspecific ST changes, but no acute changes concerning for ischemia or infarction. No change from prior study on July 30, 2017 11/08/18 13:53 Discharge - Discharge Clinical Impression: Chest pain Qualifiers: Chest pain type: unspecified Qualified Code(s): R07.9 - Chest pain, unspecified Hypertension Qualifiers: Hypertension type: unspecified Qualified Code(s): I10 - Essential (primary) hypertension Condition: Stable Disposition: HOME, SELF-CARE Instructions: Chest Pain of Unclear Cause ([facility]) Additional Instructions: Your blood pressure was elevated here again today. I suspect that you will require treatment for high blood pressure. You need to see her primary care physician, discuss antihypertensive therapy. No clear etiology was found for your chest pain today. Your cardiac enzymes are negative, your EKG showed no changes. This unfortunately does not rule out coronary artery disease, and you should follow-up with your primary care provider regarding this as well. You should be seen next week. If you develop worsening or new concerning symptoms of any sort, return immediately to the emergency department for reevaluation. Forms: Elevated Blood Pressure, Return to Work Referrals: SONIA EPSTEIN MD [Primary Care Provider] - Follow up as needed
[2018-11-08 08:31] LABS: CREATINE KINASE MB 5.15 ng/mL (<4.55)
[2018-11-08 08:32] LABS: TROPONIN I < 0.012 ng/mL
[2018-11-08 11:06] VITALS: BP 171/93
--- NOTE | 2018-11-08 22:50 | EKG REPORT ---
SEVERITY:- ABNORMAL ECG - SINUS RHYTHM LEFT VENTRICULAR HYPERTROPHY : Confirmed by: Darlin Rodríguez 08-Nov-2018 22:50:16
--- NOTE | 2018-11-08 22:51 | EKG REPORT ---
SEVERITY:- ABNORMAL ECG - SINUS RHYTHM LVH WITH SECONDARY REPOLARIZATION ABNORMALITY : Confirmed by: Darlin Rodríguez 08-Nov-2018 22:50:23
== END 2018-11-08 11:25 | disposition home or self-care (01) ==
LOC: ER 07:29
DX: R07.89 Other chest pain (principal); I10 Essential (primary) hypertension; R00.2 Palpitations; Z82.49 Family history of ischemic heart disease and other diseases of the circulatory system; E66.9 Obesity, unspecified
CPT/HCPCS: 36415; 71045; 80053; 82550; 82553; 84484; 85025; 93005; 93010; 96372; 99283

== ENCOUNTER → 2019-10-22 | Outpatient (CLI) | payer BC ==
--- NOTE | 2019-10-22 12:37 | WOMENS IMAGING REPORT ---
EXAM DESCRIPTION: 3D SCREENING MAMMO BILAT IMAGES COMPLETED DATE/TIME: 10/22/2019 7:17 am REASON FOR STUDY: Z12.31 ENCOUNTER FOR SCREENING MAMMOGRAM FOR MALIGNANT NEOPLASM OF BREAST Z12.31 ENCNTR SCREEN MAMMOGRAM FOR MALIGNANT NEOPLASM OF JULIA COMPARISON: 04/04/2017 EXAM PARAMETERS: Standard craniocaudal and mediolateral oblique views of each breast recorded using digital acquisition and breast tomosynthesis. Read with the assistance of CAD. .[facility] - Draw Bench Operator Version 9.2 LIMITATIONS: None. FINDINGS: Findings present which are benign by mammographic criteria. No suspicious masses, calcific ations or architectural distortion. Pertinent benign findings: Multiple circumscribed nodule seen bilaterally appears stable in the study interval. Benign mammographic findings may include one or more of the following: Smooth masses, popcorn/rim/coa rse calcifications, asymmetries, post-procedure changes, and lesions with long-standing stability. IMPRESSION: BENIGN MAMMOGRAPHIC FINDINGS. BIRADS 2 BREAST DENSITY: b. There are scattered areas of fibroglandular density. BIRAD: ASSESSMENT: 2 BENIGN FINDING(S) RECOMMENDATION: ROUTINE SCREENING COMMENT: The patient has been notified of the results by letter per MQSA requirements. Additional no tification policies are in place for contacting patient with suspicious or incomplete findings. Quality ID #[id number]: The [employer] recommends an annual screening mammogram for women aged 40 years or over. This facility utilizes a reminder system to ensure that all patients receive reminder letters, and/or direct phone calls for appointments. This includes reminders for routine scr eening mammograms, diagnostic mammograms, or other Breast Imaging Interventions when appropriate. Th is patient will be placed in the appropriate reminder system. TECHNICAL DOCUMENTATION: FINDING NUMBER: (1) ASSESSMENT: (1) JOB ID: [id number] 2010 [employer]- All Rights Reserved Reading location - IP/workstation name: [employer]-[facility]-[email or web address]
== END ==
LOC: WI 06:52
PROVIDERS: ATTEND Obstetrics & Gynecology Obstetrics
DX: Z12.31 Encounter for screening mammogram for malignant neoplasm of breast (principal); C54.1 Malignant neoplasm of endometrium
CPT/HCPCS: 77063; 77067